=== PATIENT | female | born 1940 | race Caucasian/White ===

== ENCOUNTER 2024-06-04 10:57 | Emergency (ER) | payer MEDICARE, OTHER, SELFPAY ==
[2024-06-04] VITALS (18 sets, daily range): BP systolic 148–164; BP diastolic 72–87; PULSE 80–95; RESP 22; O2SAT 91–96; BMI 29.9
--- NOTE | 2024-06-04 11:29 | CRLHL7_ITS ---
For Patients: As a result of the Century Cures Act, medical imaging exams and procedure reports are released immediately into your electronic medical record. You may view this report before your referring provider. If you have questions, please contact your health care provider. INDICATION: Shortness of breath TECHNIQUE: Two view chest. FINDINGS: The lungs are clear. The heart, mediastinum and pulmonary vessels are of normal size. There is no evidence of pleural disease. IMPRESSION: Negative chest. Dictated by Gladys Peng MD @ 06/04/2024 12:17:56 PM (Electronically Signed)
--- NOTE | 2024-06-04 11:44 | ED_ITS ---
HPI - General Adult General Chief complaint: Shortness of Breath/Dyspnea Stated complaint: Fall three weeks ago--rib pain, short of breath Time Seen by Provider: 06/04/24 11:11 Source: patient Mode of arrival: ambulatory Limitations: no limitations History of Present Illness HPI narrative: 83-year-old female presenting today with chest pain and shortness of breath. Patient states that she has left-sided chest pain that radiates into her left back. She states that this all started about 3 weeks ago after she fell to the ground. She states that her legs gave out and she fell onto her left side. She felt fine she was able to get up and went about her day. A couple days later she left to go and a car trip to [place] where she stayed for a week. She states that it was during the beginning of that car trip that the pain started. It has been constant ever since. She was evaluated at an urgent care recently where she states that no imaging was done when she was diagnosed with costochondritis. She states that the pain is not getting any better and is causing her to feel short of breath. She denies coughing, fevers or chills. She denies central or substernal chest pain. She denies diaphoresis, dizziness or lightheadedness. she states that it is not painful to take a deep breath. Patient does state that she has a history of PE approximately 10 years ago. She takes a daily baby aspirin? when she remembers to?. Patient denies weakness or increased fatigue. Patient denies any cardiovascular history. States that she had a stress test done in the last year and it was negative. Related Data Home Medications ?Medication ?Instructions ?Recorded ?Confirmed aspirin 81 mg capsule 81 mg PO DAILY 06/04/24 06/04/24 prednisone 10 mg tablet mg PO 06/04/24 Allergies Allergy/AdvReac Type Severity Reaction Status Date / Time No Known Drug Allergies Allergy Verified 06/04/24 12:51 Review of Systems Status of ROS: Reports: 10 or more systems reviewed and unremarkable except as noted in History and below [facility] Social History Smoking Status: Never smoker Do you use any of these nicotine containing products: None Second hand tobacco smoke exposure: No How often do you have a drink containing alcohol: monthly or less How many standard drinks containing alcohol do you have on a typical day: 1 or 2 How often do you have six or more drinks on one occasion: Never AUDIT-C Alcohol total score: 1 Non-prescribed substance use: denies use service: No Exam Narrative: Exam Narrative: Well-nourished well-developed patient in no acute distress. Alert and oriented. Answers questions appropriately. Mood and affect are appropriate. Thoughts are goal oriented and rational. No tangential or magical thinking noted. Patient speaks in full sentences without needing to catch her breath. HEENT: Normocephalic atraumatic. Pupils are equally round reactive to light. Extraocular muscles are intact. Conjunctivae are moist without any icterus noted. Moist mucous membranes. Neck is soft. Cardiovascular: Heart is regular rate and rhythm S1 and S2 are present without any murmurs. Lungs: Clear to auscultation bilaterally no wheezes rhonchi or rales are appreciated. Patient takes deep breaths without any discomfort. I cannot rep roduce her pain with palpation of the chest wall. However, she can reproduce her pain with movement. Abdomen: Soft and nontender nondistended with normal bowel sounds. No guarding or rebound. No masses or organomegaly appreciated. Minimal epigastric discomfort. Extremities: Bilateral lower extremities are without edema. Skin: Well perfused without any obvious rashes. She has a lot of scattered bruising of the upper extremities. There is no bruising noticed over the chest wall. Back: Normal appearance no bruising noted. She has no tenderness to palpation over the cervical, thoracic or lumbar spine. She is able to go from a lying to a sitting position without significant discomfort. Const: Vital Signs, click to edit/add: Vital Signs - 24 hr 06/04/24 11:11 06/04/24 11:12 06/04/24 11:12 Pulse Rate 82 86 Pulse Rate [Pulse Oximeter] 87 Respiratory Rate 22 Blood Pressure 152/78 H Blood Pressure [Ri ght Upper Arm] 152/78 H Pulse Oximetry 95 93 92 Oxygen Delivery Me thod Room Air 06/04/24 11:15 06/04/24 11:30 06/04/24 11:34 Pulse Rate 87 88 89 Pulse Rate [Pulse Oximeter] Respiratory Rate Blood Pressure Blood Pressure [Ri ght Upper Arm] Pulse Oximetry 93 94 93 Oxygen Delivery Me thod 06/04/24 11:48 06/04/24 12:00 06/04/24 12:00 Pulse Rate 86 87 Pulse Rate [Pulse Oximeter] Respiratory Rate Blood Pressure Blood Pressure [Ri ght Upper Arm] Pulse Oximetry 95 92 95 Oxygen Delivery Me thod 06/04/24 12:05 06/04/24 12:06 06/04/24 12:30 Pulse Rate 85 84 86 Pulse Rate [Pulse Oximeter] Respiratory Rate Blood Pressure Blood Pressure [Ri ght Upper Arm] Pulse Oximetry 96 94 92 Oxygen Delivery Me thod 06/04/24 12:31 Pulse Rate 80 Pulse Rate [Pulse Oximeter] Respiratory Rate Blood Pressure 164/87 H Blood Pressure [Ri ght Upper Arm] Pulse Oximetry 92 Oxygen Delivery Me thod Course Course ED Course: EKG, read by me, shows sinus rhythm with sinus arrhythmia and a premature ventricular complex. I do not have a previous EKG to compare this to. His CBC shows a white cell count of 11.1, hemoglobin 10.7, platelet count 318. Lymphocytes are low at 8.7%, absolute lumbar lymphocytes were normal at 1 150. Potassium is low at 3.0. Chemistries are otherwise unremarkable. Normal lactate. Normal LFTs. CRP is 1.5. BNP 1040 Triple swab is negative. Troponin 0.02. Chest x-ray, read by me, does not show any acute pathology. D-dimer was elevated at 1.82. Chest CT, PE protocol, with not show any acute abnormalities. Vital Signs Vital signs: Initial Vital Signs Pulse Rate 82 06/04/24 11:11 Pulse Oximetry 95 06/04/24 11:11 Vital Signs Pulse Rate 82 06/04/24 11:11 Pulse Oximetry 95 06/04/24 11:11 Pulse Rate 80 06/04/24 12:31 Respiratory Rate 22 06/04/24 11:12 Blood Pressure 164/87 H 06/04/24 12:31 Pulse Oximetry 92 06/04/24 12:31 Oxygen Delivery Method Room Air 06/04/24 11:12 Medications Administered Medications: Discontinued Medications Generic Name Dose Route Start Last Admin Trade Name Freq PRN Reason Stop Dose Admin Potassium Chloride 40 meq 06/04/24 12:33 06/04/24 13:11 Potassium Chloride 10 Meq Capsule Er PO 06/04/24 12:34 40 meq ONCE ONE Administration Medical Decision Making MDM Narrative Medical decision making narrative: 83-year-old female with chest wall discomfort and subsequent shortness of breath. No abnormalities noted in today's examination. We discussed that this could be musculoskeletal pain. Given that she has had a stress test in the last year it is unlikely that this is cardiovascular in nature. There was no evidence of lung pathology noted. Patient tells me that she does not have a primary care provider that she follows up with regularly, has not been impressed with doctors in the past. We discussed that she needs to establish care with a provider and follow-up accordingly. I recommend she return to the ER for worsening symptoms and having a low threshold to do so. Patient was in agreement and had no other questions. Lab Data Labs: Lab Results 06/04/24 06/04/24 Range/Units 11:38 11:40 WBC 11.15 H (4.50-11.00) K/uL RBC 3.17 L (4.00-5.20) m/uL Hgb 10.7 L (12.0-16.0) gm/dL Hct 33.4 (33.0-51.0) % MCV 105 H (80-100) fL MCH 34 (26-34) pg MCHC 32 (32-36) gm/dL RDW Coeff of Padmini 19.0 H (11.5-15.5) % Plt Count 318 (140-440) K/uL Neut % (Auto) 81.5 H (42.0-72.0) % Lymph % (Auto) 8.7 L (20-44) % [place] % (Auto) 6.7 (0.0-11.0) % Eos % (Auto) 2.1 (0.0-7.0) % Baso % (Auto) 0.6 (0.0-3.0) % Neut # (Auto) 9.10 H (1.7-7.0) K/uL Lymph # (Auto) 1.00 (0.90-2.90) K/uL [place] # (Auto) 0.70 (0.00-0.90) K/UL Eos # (Auto) 0.20 (0.00-0.50) K/uL Baso # (Auto) 0.10 (0.00-0.30) K/uL Abs Immat Gran (auto) 0.00 (0.00-0.30) K/uL Imm/Tot Granulo (auto) 0.4 % D-Dimer Quant (PE/DVT) 1.82 H (0.00-0.50) ug/ml Sodium 136 (135-149) mmol/L Potassium 3.0 L (3.6-5.1) mmol/L Chloride 98 (96-114) mmol/L Carbon Dioxide 32 (20-32) mmol/L Anion Gap 6 L (7-15) mEq/L BUN 8 (7-30) mg/dL Creatinine 0.7 (0.5-1.5) mg/dL Estimated Creat Clear 30.08 Estimated GFR 85 ml/min Glucose 109 (60-115) mg/dL Lactate 1.4 (0.5-1.9) mmol/L Calcium 8.9 (8.4-10.6) mg/dL Total Bilirubin 1.0 (0.1-1.5) mg/dL Direct Bilirubin 0.1 (0.0-0.5) mg/dL AST 20 (12-35) U/L ALT 15 (4-35) U/L Alkaline Phosphatase 87 (40-150) U/L Troponin I 0.02 (0.01-0.04) ng/mL C-Reactive Protein 1.5 H (0.5-1.0) mg/dL NT-Pro-B Natriuret Pep 1040 pg/mL Total Protein 6.5 (6.0-8.3) g/dL Albumin 3.9 (3.3-5.0) g/dL Lipase 41 (23-300) U/L SARS-CoV-2 (PCR) Negative SARS-CoV-2 (Negative) Influenza Type A (PCR) Negative PCR FLU A (Negative) Influenza Type B (PCR) Negative PCR FLU B (Negative) Imaging Data Chest x-ray: Attestation: I have reviewed the pertinent imaging results. Radiologist's impression: TECHNIQUE: Two view chest. FINDINGS: The lungs are clear. The heart, mediastinum and pulmonary vessels are of normal size. There is no evidence of pleural disease. IMPRESSION: Negative chest. CT scan - chest: Attestation: I have reviewed the pertinent imaging results. Radiologist's impression: Shortness of breath fall 3 weeks ago left rib pain TECHNIQUE: CT chest with 95 mL Isovue 370 COMPARISON: None. FINDINGS: Soft tissue nodule left paratracheal region on the coronal images could be related to exophytic left lower thyroid nodule. , 12/07 Lungs and pleura: No suspicious nodules or infiltrates. No pleural effusions, pleural thickening, or pneumothorax. Heart and vasculature: Heart size is normal. Thoracic aorta and pulmonary artery are normal in caliber. No pulmonary emboli. Lymph nodes/mediastinum: Chest wall: No masses. Upper abdomen: No significant findings. Bones: Minimal compression deformity of T12 age indeterminate no definite acute fractures are seen. No rib fractures seen. IMPRESSION: 1. No acute pulmonary emboli. No acute pulmonary findings. No acute rib fracture seen. 2. Possible Exophytic left lower pole thyroid nodule would recommend ultrasound. ECG Data Attestation: I personally reviewed and interpreted this ECG as follows: Discharge Plan Discharge Clinical Impression: Shortness of breath, Atypical chest pain, Thyroid nodule Patient Disposition: Home, Self-Care Condition: Stable Additional Instructions: Recommend taking Tylenol as needed/as directed for discomfort. Okay to apply heat to the sore areas - do not apply heat directly to the skin and do not use heat for more than 20 minutes at a time. Recommend that you establish care with a primary care provider so you can have more consistent follow-up. We can provided with phone numbers to our clinic physicians here in [place] if needed. If you develop worsening pain, cough, weakness, fever or vomiting then you should return to the emergency room. Lastly, your CT scan today did show a small nodule on your thyroid. This is nothing to be concerned about however you should have an ultrasound of your thyroid done to further evaluate what this nodule is. This can be ordered by a primary care provider. Recommend you get this done in the next couple of weeks. Prescriptions: No Action prednisone 10 mg tablet PO aspirin 81 mg capsule 81 mg PO DAILY Follow Up/Referrals: Provider,Not a Local [Primary Care Provider] - Stand Alone Forms: FAST FELT Info Instructions
[2024-06-04 11:50] LABS: Lactate* 1.4 mmol/L (0.5-1.9)
[2024-06-04 11:51] LABS: Basophils Percent Auto 0.6 % (0.0-3.0); Eosinophils Percent Auto 2.1 % (0.0-7.0); Hematocrit 33.4 % (33.0-51.0); Hemoglobin* 10.7 gm/dL (12.0-16.0); Immature Granulocytes Pct Auto 0.4 %; Lymphocytes Percent Auto 8.7 % (20-44); Mean Corpuscular HGB Conc 32 gm/dL (32-36); Mean Corpuscular Hemoglobin 34 pg (26-34); Mean Corpuscular Volume 105 fL (80-100); Monocytes Percent Auto 6.7 % (0.0-11.0); Neutrophils Percent Auto 81.5 % (42.0-72.0); Platelet Count* 318 K/uL (140-440); Red Blood Count 3.17 m/uL (4.00-5.20); White Blood Count* 11.15 K/uL (4.50-11.00)
[2024-06-04 12:05] LABS: Slide Review Reflex No
[2024-06-04 12:08] LABS: Albumin* 3.9 g/dL (3.3-5.0); Chloride* 98 mmol/L (96-114); Sodium* 136 mmol/L (135-149)
[2024-06-04 12:11] LABS: Creatinine* 0.7 mg/dL (0.5-1.5); D Dimer Quantitative* 1.82 ug/ml (0.00-0.50); Est. Creatinine Clearance* 30.08; Estimated Glomerular Filt Rate 85 ml/min
[2024-06-04 12:12] LABS: Alanine Aminotransferase* 15 U/L (4-35); Alkaline Phosphatase* 87 U/L (40-150); Anion Gap 6 mEq/L (7-15); Aspartate Amino Transferase* 20 U/L (12-35); Bilirubin Direct* 0.1 mg/dL (0.0-0.5); Blood Urea Nitrogen* 8 mg/dL (7-30); Calcium* 8.9 mg/dL (8.4-10.6); Carbon Dioxide* 32 mmol/L (20-32); Glucose* 109 mg/dL (60-115); Lipase* 41 U/L (23-300); Total Protein* 6.5 g/dL (6.0-8.3)
[2024-06-04 12:15] LABS: C Reactive Protein* 1.5 mg/dL (0.5-1.0)
--- NOTE | 2024-06-04 12:16 | CRLHL7_ITS ---
For Patients: As a result of the Century Cures Act, medical imaging exams and procedure reports are released immediately into your electronic medical record. You may view this report before your referring provider. If you have questions, please contact your health care provider. INDICATION: Shortness of breath fall 3 weeks ago left rib pain TECHNIQUE: CT chest with 95 mL Isovue 370 COMPARISON: None. FINDINGS: Soft tissue nodule left paratracheal region on the coronal images could be related to exophytic left lower thyroid nodule. , 12/07 Lungs and pleura: No suspicious nodules or infiltrates. No pleural effusions, pleural thickening, or pneumothorax. Heart and vasculature: Heart size is normal. Thoracic aorta and pulmonary artery are normal in caliber. No pulmonary emboli. Lymph nodes/mediastinum: Chest wall: No masses. Upper abdomen: No significant findings. Bones: Minimal compression deformity of T12 age indeterminate no definite acute fractures are seen. No rib fractures seen. IMPRESSION: 1. No acute pulmonary emboli. No acute pulmonary findings. No acute rib fracture seen. 2. Possible Exophytic left lower pole thyroid nodule would recommend ultrasound. Please note that all CT scans at this facility use dose modulation, iterative reconstruction, and/or weight-based dosing when appropriate to reduce radiation dose to as low as reasonably achievable. Dictated by Gladys Peng MD @ 06/04/2024 1:44:21 PM (Electronically Signed)
[2024-06-04 12:23] LABS: Troponin I* 0.02 ng/mL (0.01-0.04)
[2024-06-04 12:30] LABS: NT Pro B Type NatriureticPept* 1040 pg/mL
[2024-06-04 12:31] LABS: PCR FLU A Negative PCR FLU A (Negative); PCR FLU B Negative PCR FLU B (Negative); SARS PCR* Negative SARS-CoV-2 (Negative)
[2024-06-04] MEDS: POTASSIUM CHLORIDE 10 MEQ CAPSULE ER 40 MEQ PO (13:11)
[2024-06-04 14:25] LABS: Appearance Urine Clear (Clear); Bilirubin Urine Negative (Negative); Blood Urine Trace-lysed (Negative); Color Urine Yellow (Yellow); Glucose Urine Negative (Negative); Ketones Urine 1+ (Negative); Leukocyte Esterase Urine Negative (Negative); Nitrite Urine Negative (Negative); Protein Urine Negative (Negative); Specific Gravity Urine 1.015 (1.000-1.030); Urobilinogen Urine 0.2 (0.2-1.0)
[2024-06-04 14:34] LABS: RBC Urine 0-2 (0-2); WBC Urine 0-2 (0-5)
== END 2024-06-04 14:17 | disposition home or self-care (01) ==
PROVIDERS: Emergency Provider Family Medicine
DX: R06.02 Shortness of breath (principal); R07.89 Other chest pain; E04.1 Nontoxic single thyroid nodule
CPT/HCPCS: 36415; 71046; 71275; 80048; 80076; 81001; 83605; 83690; 83880; 84484; 85025; 85379; 86140; 87631; 93005; 94761; 99284; 99285; A9270; Q9967

== ENCOUNTER 2024-07-19 16:45 | Emergency (ER) | payer MEDICARE, OTHER, SELFPAY ==
[2024-07-19] VITALS (13 sets, daily range): BP systolic 113–122; BP diastolic 51–72; PULSE 74–111; RESP 18; TEMP 36.9; O2SAT 88–96; BMI 25.7
--- NOTE | 2024-07-19 16:54 | CRLHL7_ITS ---
For Patients: As a result of the Century Cures Act, medical imaging exams and procedure reports are released immediately into your electronic medical record. You may view this report before your referring provider. If you have questions, please contact your health care provider. DATE: 07/19/2024 CLINICAL HISTORY: Patient with focal neurological deficits. TECHNIQUE: Standard helical CT image acquisition through the intracranial circulation following intravenous administration of contrast material with bolus tracking. 2D and 3D MIP images for post-processing were performed and interpreted on an independent workstation and 3D images were permanently archived. COMPARISON: CT same day. FINDINGS: There is no cerebral aneurysm or proximal intracranial large vessel occlusion. 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 IMPRESSION: 1. No cerebral aneurysm or proximal intracranial large vessel occlusion. 2. 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 Please note that all CT scans at this facility use dose modulation, iterative reconstruction, and/or weight-based dosing when appropriate to reduce radiation dose to as low as reasonably achievable. Dictated by Danya Ayala MD @ 07/20/2024 9:12:03 AM (Electronically Signed)
--- NOTE | 2024-07-19 16:54 | CRLHL7_ITS ---
For Patients: As a result of the Century Cures Act, medical imaging exams and procedure reports are released immediately into your electronic medical record. You may view this report before your referring provider. If you have questions, please contact your health care provider. INDICATION: Visual disturbance. TECHNIQUE: Multiplanar multisequence noncontrast MR images of the brain. COMPARISON: CT brain 07/19/2024. FINDINGS: Punctate foci of diffusion hyperintensity and ADC isointensity in the anterior and medial right parietal lobe, compatible with subacute to chronic infarctions. No diffusion restriction to suggest acute infarction. Mild diffuse cerebral volume loss. No mass effect or midline shift. Scattered FLAIR hyperintensities in the supratentorial white matter, typical for mild chronic microvascular ischemic changes. 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 No recent intracranial hemorrhage or pathologic extra-axial fluid collection. Punctate susceptibility superior left occipital lobe, compatible with a microhemorrhage. Thinning of the ocular lenses. Paranasal sinuses are well aerated. Minimal left mastoid fluid. IMPRESSION: 1. Very small subacute to chronic infarctions within the right parietal lobe. 2. 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 3. Mild chronic microvascular ischemic changes and diffuse cerebral volume loss. Dictated by Alexander Nguyen MD @ 07/19/2024 6:04:36 PM (Electronically Signed)
--- NOTE | 2024-07-19 16:54 | CRLHL7_ITS ---
For Patients: As a result of the Century Cures Act, medical imaging exams and procedure reports are released immediately into your electronic medical record. You may view this report before your referring provider. If you have questions, please contact your health care provider. Indication Weakness. Vision changes. TECHNIQUE: Noncontrast CT images of the brain. COMPARISON: None. FINDINGS: Mild diffuse cerebral volume loss. No mass effect or midline shift. Giron-white differentiation is maintained. No acute intracranial hemorrhage or pathologic extra-axial fluid collection. Suggested mild chronic microvascular ischemic changes. Intracranial atherosclerotic calcifications. Thinning of the ocular lenses. Calvarium is intact. The visualized paranasal sinuses and mastoid air cells are clear. IMPRESSION: No acute intracranial hemorrhage or mass effect. Please note that all CT scans at this facility use dose modulation, iterative reconstruction, and/or weight-based dosing when appropriate to reduce radiation dose to as low as reasonably achievable. Dictated by Alexander Nguyen MD @ 07/19/2024 5:50:12 PM (Electronically Signed)
--- NOTE | 2024-07-19 16:54 | CRLHL7_ITS ---
For Patients: As a result of the Century Cures Act, medical imaging exams and procedure reports are released immediately into your electronic medical record. You may view this report before your referring provider. If you have questions, please contact your health care provider. DATE: 07/19/2024 CLINICAL HISTORY: Patient with carotid stenosis. TECHNIQUE: Standard helical CT image acquisition of the neck up to the skull base after bolus intravenous contrast enhancement. 2D and 3D MIP images for post-processing were performed and interpreted on an independent workstation and 3D images were permanently archived. COMPARISON: CT same day. FINDINGS: The origins of the great vessels from the aortic arch are patent. 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 The origin of the left vertebral artery demonstrates moderate narrowing. The common carotid arteries are patent. There is a critical (99%) stenosis at the origin of the right internal carotid artery by NASCET criteria. This is caused by non-calcified plaque with a hairline residual lumen. There is a critical (99%) stenosis at the origin of the left internal carotid artery by NASCET criteria. This is caused by non-calcified plaque with a hairline residual lumen. The rest of the cervical segments of the internal carotid arteries are patent up to the skull base. The left vertebral artery is dominant. The cervical segments of the vertebral arteries are patent up to the skull base. The visualized lung apices are unremarkable. The thyroid gland is unremarkable. The soft tissues of the neck are unremarkable. There are degenerative changes in the cervical spine. IMPRESSION: 1. Critical (99%) stenosis at the origin of the right internal carotid artery by NASCET criteria. This is caused by non-calcified plaque with a hairline residual lumen. 2. Critical (99%) stenosis at the origin of the left internal carotid artery by NASCET criteria. This is caused by non-calcified plaque with a hairline residual lumen. 3. 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 Moderate narrowing at the origin of the dominant left vertebral artery. Please note that all CT scans at this facility use dose modulation, iterative reconstruction, and/or weight-based dosing when appropriate to reduce radiation dose to as low as reasonably achievable. Dictated by Danya Ayala MD @ 07/20/2024 9:08:56 AM (Electronically Signed)
--- NOTE | 2024-07-19 17:05 | CRLHL7_ITS ---
For Patients: As a result of the Century Cures Act, medical imaging exams and procedure reports are released immediately into your electronic medical record. You may view this report before your referring provider. If you have questions, please contact your health care provider. INDICATION: Chest pain. Back pain. TECHNIQUE: Chest 2 views. COMPARISON: 06/04/2024. FINDINGS: No pneumothorax or pleural effusion. Linear bibasilar scarring or atelectasis and small calcified nodule at the left lung base, as before. Lungs are otherwise clear. Aortic atherosclerosis. Cardiac and mediastinal contours are within normal limits. Upper abdomen as imaged is unremarkable. Bone demineralization and degenerative changes. No radiographic evidence of acute fracture. IMPRESSION: No evidence of acute cardiopulmonary disease. Dictated by Dennis Marshall MD @ 07/19/2024 6:23:51 PM (Electronically Signed)
[2024-07-19 17:18] LABS: Basophils Absolute Auto 0.08 K/uL (0.00-0.30); Basophils Percent Auto 1.2 % (0.0-3.0); Eosinophils Absolute Auto 0.32 K/uL (0.00-0.50); Eosinophils Percent Auto 4.8 % (0.0-7.0); Hematocrit 34.1 % (33.0-51.0); Hemoglobin* 10.9 gm/dL (12.0-16.0); Immature Granulocytes Abs Auto 0.03 K/uL (0.00-0.30); Immature Granulocytes Pct Auto 0.5 %; Lymphocytes Absolute Auto 1.65 K/uL (0.90-2.90); Lymphocytes Percent Auto 24.8 % (20-44); Mean Corpuscular HGB Conc 32 gm/dL (32-36); Mean Corpuscular Hemoglobin 33 pg (26-34); Mean Corpuscular Volume 104 fL (80-100); Monocytes Percent Auto 9.2 % (0.0-11.0); Neutrophils Absolute Auto 3.95 K/uL (1.7-7.0); Neutrophils Percent Auto 59.5 % (42.0-72.0); Platelet Count* 421 K/uL (140-440); RDW Coefficient of Variation % 19.7 % (11.5-15.5); Red Blood Count 3.27 m/uL (4.00-5.20); White Blood Count* 6.64 K/uL (4.50-11.00)
[2024-07-19 17:21] LABS: Slide Review Reflex No
[2024-07-19 17:35] LABS: Chloride* 105 mmol/L (96-114); Sodium* 139 mmol/L (135-149)
[2024-07-19 17:36] LABS: Potassium* 3.7 mmol/L (3.6-5.1)
[2024-07-19 17:38] LABS: Creatinine* 0.7 mg/dL (0.5-1.5); Est. Creatinine Clearance* 34.64; Estimated Glomerular Filt Rate 85 ml/min
[2024-07-19 17:39] LABS: Anion Gap 8 mEq/L (7-15); Blood Urea Nitrogen* 13 mg/dL (7-30); Calcium* 9.1 mg/dL (8.4-10.6); Carbon Dioxide* 26 mmol/L (20-32); Glucose* 142 mg/dL (60-115)
--- NOTE | 2024-07-19 17:49 | ED_ITS ---
HPI - General Adult General Date Seen: 07/19/24 Chief complaint: Headache/Migraine Stated complaint: possible stroke Time Seen by Provider: 07/19/24 16:53 Source: patient Mode of arrival: ambulatory Limitations: no limitations History of Present Illness HPI narrative: Patient is an 83-year-old female presenting to emergency department with her friend. Patient states over the past few months she has been having issues with intermittent torquing vision were feel like she is wearing dark sunglasses for him symptoms usually last 30-45 minutes. She has seen primary care and an nurse staff industrial with no diagnosis found yet. She states she was feeling fatigue all morning was having some pain between her shoulder blades when all this was occurring. She took a nitro and after an hour and a half symptoms resolved. She had a heart stent placed 2 weeks ago at [facility]. At that time she was having the same pain in her back. She is also feeling a bit fatigued at that time but does appear to be getting better now. Her friend, who was in the room with her, states that when she spoke to her on the phone this morning the patient seemed very tired and out of it and now she would describe her as 85%. States she does feel short of breath with asthma chronic issue and has improved since her stent placement. Denies fevers, chills, abdominal pain, dizziness, headache, diarrhea, constipation. Related Data Home Medications ?Medication ?Instructions ?Recorded ?Confirmed aspirin 81 mg capsule 81 mg PO DAILY 06/04/24 07/19/24 prednisone 10 mg tablet mg PO 06/04/24 apixaban 5 mg tablet (Eliquis) PO 07/19/24 clopidogrel 75 mg tablet 75 mg PO DAILY 07/19/24 07/19/24 ezetimibe 10 mg tablet 10 mg PO DAILY 07/19/24 07/19/24 nitroglycerin 0.4 mg sublingual sublingual 07/19/24 tablet rosuvastatin 5 mg tablet 5 mg PO DAILY 07/19/24 07/19/24 Allergies Allergy/AdvReac Type Severity Reaction Status Date / Time No Known Drug Allergies Allergy Verified 07/19/24 17:32 Review of Systems Status of ROS: Reports: 10 or more systems reviewed and unremarkable except as noted in History and below PFSH PFSH Social History Smoking Status: Never smoker Do you use any of these nicotine containing products: None Second hand tobacco smoke exposure: No How often do you have a drink containing alcohol: monthly or less How many standard drinks containing alcohol do you have on a typical day: 1 or 2 How often do you have six or more drinks on one occasion: Never AUDIT-C Alcohol total score: 1 Non-prescribed substance use: denies use service: No Exam Narrative: Exam Narrative: Const: Well-nourished, Well-developed, in mild distress Eyes: PERRL, no conjunctival injection, and symmetrical lids HENT: Atraumatic external nose and ears. Moist mucous membranes. Neck: Symmetric, trachea midline, No thyromegaly. CVS: RRR, No murmurs or gallops. Peripheral pulses 2+ and equal in all extremities RESP: Unlabored respiratory effort. Clear to auscultation bilaterally. GI: Nontender/Nondistended, No rebound or guarding. MSK:Extremities w/o deformity, Normal Active ROM Skin: Warm, Dry. No rashes or lesions. Neuro: Normal Muscle tone, No focal neurological deficits. Psych: Awake, Alert, & Oriented x3. Appropriate mood and affect. Const: Vital Signs, click to edit/add: Vital Signs - 24 hr 07/19/24 16:50 07/19/24 17:05 07/19/24 17:06 Temperature 98.4 F Pulse Rate 89 83 Pulse Rate [Left P ulse Oximeter] 111 H Respiratory Rate Blood Pressure 122/72 Blood Pressure [Le ft Upper Arm] 122/71 Pulse Oximetry 94 88 95 [facility] 07/19/24 17:13 07/19/24 18:00 07/19/24 18:02 Temperature Pulse Rate 87 91 Pulse Rate [Left P ulse Oximeter] Respiratory Rate 18 Blood Pressure 120/51 L Blood Pressure [Le ft Upper Arm] Pulse Oximetry 95 96 Oxygen Delivery Ak thod 07/19/24 18:03 07/19/24 18:15 07/19/24 18:30 Temperature Pulse Rate 74 76 79 Pulse Rate [Left P ulse Oximeter] Respiratory Rate Blood Pressure Blood Pressure [Le ft Upper Arm] Pulse Oximetry 96 96 94 Oxygen Delivery Ak thod 07/19/24 18:33 07/19/24 18:34 07/19/24 18:45 Temperature Pulse Rate 80 87 81 Pulse Rate [Left P ulse Oximeter] Respiratory Rate Blood Pressure 120/62 Blood Pressure [Le ft Upper Arm] Pulse Oximetry 94 95 89 Oxygen Delivery Me thod 07/19/24 19:06 Temperature Pulse Rate Pulse Rate [Left P ulse Oximeter] Respiratory Rate Blood Pressure 113/64 Blood Pressure [Le ft Upper Arm] Pulse Oximetry Oxygen Delivery Me thod Course Vital Signs Vital signs: Initial Vital Signs Temperature 98.4 F 07/19/24 16:50 Temperature Source Temporal Artery Scan 07/19/24 16:50 Pulse Rate 111 H 07/19/24 16:50 Pulse Rhythm Regular 07/19/24 16:50 Blood Pressure 122/71 07/19/24 16:50 Blood Pressure Mean 88 07/19/24 16:50 Blood Pressure Position Supine 07/19/24 16:50 Pulse Oximetry 94 07/19/24 16:50 Oxygen Delivery Method Room Air 07/19/24 16:50 Vital Signs Temperature 98.4 F 07/19/24 16:50 Pulse Rate 111 H 07/19/24 16:50 Blood Pressure 122/71 07/19/24 16:50 Pulse Oximetry 94 07/19/24 16:50 Oxygen Delivery Method Room Air 07/19/24 16:50 Temperature 98.4 F 07/19/24 16:50 Pulse Rate 81 07/19/24 18:45 Respiratory Rate 18 07/19/24 17:13 Blood Pressure 113/64 07/19/24 19:06 Pulse Oximetry 89 07/19/24 18:45 Oxygen Delivery Method Room Air 07/19/24 16:50 Medical Decision Making MDM Narrative Medical decision making narrative: Patient is an 83-year-old female who presented to emergency department concerned about stroke symptoms. The symptoms have since fully resolved. Code stroke is not necessary. Based on her description also this does not sound clearly like a stroke. Typically with a stroke you would have complete loss of vision and not darker vision. 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 At this time will do CT scan of her head along the CTA head and neck. MRI is available right now so we will do an MRI also. She was also having some chest pain that resolved 90 been it after taking nitro. She did have a cardiac stent placed 2 weeks ago but is on aspirin and Plavix. Concerned how long it took for symptoms to resolve with nitro does not seem likely to be a restenoses by will check a chest x-ray, troponin, EKG. Also do CBC, BMP, BNP. EKG reviewed by myself shows no concerning abnormalities. Troponin within normal limits. Will repeat troponin in 2 hours. CBC, BMP, viral swabs showed no concerning findings. BNP is elevated at 1300 but this is roughly were she was previously and she is not showing any other clear signs of CHF exacerbation. Imaging reviewed by myself and the radiologist shows quite a bit of stenosis to her bilateral carotids and vertebral arteries. MRI shows some chronic are strokes. Considering all this I did speak to Neurology and was recommended to have a follow-up with vascular and Neurology outpatient. Does not recommend any further medication changes as she was already on dual anti-platelet therapy. Repeat troponin was negative. She is asymptomatic at this time and will follow- up outpatient. On my review vital signs are stable throughout time in in the emergency department. Oximetry stayed in the mid to high 90s. satellite project site monitor showed no concerning arrhythmias. She is agreeable to this plan Lab Data Labs: Lab Results 07/19/24 07/19/24 07/19/24 Range/Units 17:00 17:08 18:59 WBC 6.64 (4.50-11.00) K/uL RBC 3.27 L (4.00-5.20) m/uL Hgb 10.9 L (12.0-16.0) gm/dL Hct 34.1 (33.0-51.0) % MCV 104 H (80-100) fL MCH 33 (26-34) pg MCHC 32 (32-36) gm/dL RDW Coeff of Padmini 19.7 H (11.5-15.5) % Plt Count 421 (140-440) K/uL Neut % (Auto) 59.5 (42.0-72.0) % Lymph % (Auto) 24.8 (20-44) % [place] % (Auto) 9.2 (0.0-11.0) % Eos % (Auto) 4.8 (0.0-7.0) % Baso % (Auto) 1.2 (0.0-3.0) % Neut # (Auto) 3.95 (1.7-7.0) K/uL Lymph # (Auto) 1.65 (0.90-2.90) K/uL [place] # (Auto) 0.60 (0.00-0.90) K/UL Eos # (Auto) 0.32 (0.00-0.50) K/uL Baso # (Auto) 0.08 (0.00-0.30) K/uL Abs Immat Gran (auto) 0.03 (0.00-0.30) K/uL Imm/Tot Granulo (auto) 0.5 % Sodium 139 (135-149) mmol/L Potassium 3.7 (3.6-5.1) mmol/L Chloride 105 (96-114) mmol/L Carbon Dioxide 26 (20-32) mmol/L Anion Gap 8 (7-15) mEq/L BUN 13 (7-30) mg/dL Creatinine 0.7 (0.5-1.5) mg/dL Estimated Creat Clear 34.64 Estimated GFR 85 ml/min Glucose 142 H (60-115) mg/dL Calcium 9.1 (8.4-10.6) mg/dL Troponin I < 0.01 L (0.01-0.04) ng/mL NT-Pro-B Natriuret Pep 1310 pg/mL SARS-CoV-2 (PCR) Negative SARS-CoV-2 (Negative) Influenza Type A (PCR) Negative PCR FLU A (Negative) Influenza Type B (PCR) Negative PCR FLU B (Negative) POC Troponin I 0.00 L 0.01 (0.01-0.04) ng/ml Imaging Data MR Brain: Attestation: I have reviewed the pertinent imaging results. Radiologist's impression: 1. Very small subacute to chronic infarctions within the right parietal lobe. 2. 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 3. Mild chronic microvascular ischemic changes and diffuse cerebral volume loss. Dictated by Alexander Nguyen MD @ 07/19/2024 6:04:[address] scan - head: Attestation: I have reviewed the pertinent imaging results. Radiologist's impression: No acute intracranial hemorrhage or mass effect. Please note that all CT scans at this facility use dose modulation, iterative reconstruction, and/or weight-based dosing when appropriate to reduce radiation dose to as low as reasonably achievable. Dictated by Alexander Nguyen MD @ 07/19/2024 5:50:12 PM CTA head and neck: Attestation: I have reviewed the pertinent imaging results. Radiologist's impression: Preliminary Report: Occluded right vertebral artery distal V4 segment. Otherwise, no proximal large vessel occlusion of the intracranial arteries. Critical, near occlusive stenoses of the right and left cervical internal carotid artery origins with abrupt reconstitution. Severe left vertebral artery origin stenosis. Occluded right vertebral artery origin with reconstitution of the vertebral artery V2 and V3 segments. Read by:?Alexander Nguyen MD @07/19/2024 5:57:43 PM Chest x-ray: Attestation: I have reviewed the pertinent imaging results. Radiologist's impression: No evidence of acute cardiopulmonary disease. Dictated by Dennis Marshall MD @ 07/19/2024 6:23:51 PM ECG Data Attestation: I personally reviewed and interpreted this ECG as follows: Prior ECG tracings: available for review Interpretation: Normal sinus rhythm with a rate of 92 beats per minute, PVCs, normal intervals, normal axis, no ST or T-wave abnormalities. Appears similar to previous EKG on file. Discharge Plan Discharge Clinical Impression: Transient vision disturbance Patient Disposition: Home, Self-Care Condition: Stable Instructions: Blurred Vision (ED) Additional Instructions: Continue take your Plavix an aspirin. I recommend following up with Neurology and vascular for your chronic strokes and severe carotid stenosis. For neurology can follow up with the [facility] neurology clinic at [phone]. I recommend speaking to your primary care provider about a referral for vascular surgery. Return to emergency department for new or worsening symptoms. Prescriptions: No Action prednisone 10 mg tablet PO aspirin 81 mg capsule 81 mg PO DAILY clopidogrel 75 mg tablet 75 mg PO DAILY nitroglycerin 0.4 mg tablet, sublingual sublingual ezetimibe 10 mg tablet 10 mg PO DAILY rosuvastatin 5 mg tablet 5 mg PO DAILY Eliquis 5 mg tablet PO Follow Up/Referrals: Provider,Not a Local [Primary Care Provider] - Stand Alone Forms: [employer] Info Instructions
[2024-07-19 17:54] LABS: NT Pro B Type NatriureticPept* 1310 pg/mL; Troponin I* < 0.01 ng/mL (0.01-0.04)
[2024-07-19 17:56] LABS: PCR FLU A Negative PCR FLU A (Negative); PCR FLU B Negative PCR FLU B (Negative); SARS PCR* Negative SARS-CoV-2 (Negative)
[2024-07-19 19:24] LABS: Troponin, Point-of-Care* 0.01 ng/ml (0.01-0.04)
== END 2024-07-19 19:44 | disposition home or self-care (01) ==
PROVIDERS: Emergency Provider Student in an Organized Health Care Education/Training Program
DX: H53.123 Transient visual loss, bilateral (principal)
CPT/HCPCS: 36415; 70450; 70496; 70498; 70551; 71046; 80048; 83880; 84484; 85025; 87631; 93005; 99284; 99285; Q9967

== ENCOUNTER 2025-01-29 15:31 | Emergency (ER) | payer MEDICARE, OTHER, SELFPAY ==
--- OUTSIDE RECORDS SUMMARY | 2024-12-18 13:54 | XMS_ITS | Encounter Summary ---
Author Organization [facility] Address [address] [place] [address] Care Team Providers Care Inspector Watch Assembly Name Role Phone Elsewhere, Pcp Primary Care Provider Unavailabl e Reason for Referral * Outpatient (Routine) - Canceled Specialty Diagnoses / Procedures Referred By Aj michaels Referred To Contact Diagnoses Percutaneous Transarterial Coronary Angioplasty Status Post Procedures Cardiac Rehab Program Fady Denney M.D. [address] [place] [address] Phone: tel: fax: [facility] Referral ID Status Reason Start Date Expiration Date V isits Requested Visits Authorized [id number] Canceled 11/01/2024 02/01/2026 45 45 Reason for Visit * Outpatient (Routine) - Canceled Specialty Diagnoses / Procedures Referred By Aj michaels Referred To Contact Diagnoses Percutaneous Transarterial Coronary Angioplasty Status Post Procedures Cardiac Rehab Program Fady Denney M.D. [address] [place] [address] Phone: tel: fax: [facility] Region Referral ID Status Reason Start Date Expiration Date V isits Requested Visits Authorized [id number] Canceled 11/01/2024 02/01/2026 45 45 Encounter Details Date Type Department Care Team (Latest Contact Info) Description 12/18/2024 1:54 PM CDT - 12/18/2024 11:59 PM CDT Hospital Encounter Department of Cardiac Rehabilitation in [place], [place] [address] [place] [phone] Fady Denney M.D. 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 clopidogreL (Plavix) 75 mg tablet Take 75 mg by mouth daily. co-enzyme Q-10 (Co Q-10) 100 mg capsule Take 100 mg by mouth daily. ezetimibe (Zetia) 10 mg tablet Take 10 mg by mouth daily. furosemide (Lasix) 40 mg tablet Take 40 mg by mouth daily. rosuvastatin (Crestor) 5 mg tablet Take 5 mg by mouth daily. spironolactone (Aldactone) 25 mg tablet Take 12.5 mg by mouth daily. documented as of this encounter Plan of Treatment Upcoming Encounters Date Type Department Care Team (Latest Contact Info) Description 02/20/2025 5:00 PM CDT Appointment Department of Radiology, [facility], in [place], [place] [address] [place] [phone] Winter Wasserman P.A.-C., P.A., M.S. [address] [place] [phone] Discharge Disposition: Home or Self Care 02/21/2025 10:15 AM CDT Comprehensive Visit Department of Physical Medicine and Rehabilitation in [place], [place] [address] [place] [phone] Winter Wasserman P.A.-Natasha., P.A., M.S. [address] [place] [phone] Armida Rangel P.T. [address] [place] [phone] Scheduled Orders Name Type Priority Associated Diagnoses Orde r Schedule Cardiac Rehab Program Card Rehab Routine Percutaneous Transarterial Coronary Angioplasty Status Post Once for 1 Occurrences starting 12/18/2024 until 12/18/2024 documented as of this encounter Visit Diagnoses Diagnosis Percutaneous Transarterial Coronary Angioplasty Status Post documented in this encounter Additional Health Concerns Assessment Noted Time PHQ-9 Depression Total Score: 8 11/09/19 25 1:53 PM CDT documented as of this encounter Care Teams Inspector Watch Assembly Relationship Specialty Start Date End Date Elsewhere, Pcp PCP - General Family Medicine 12/21/20 documented as of this encounter
--- OUTSIDE RECORDS SUMMARY | 2024-12-28 11:00 | XMS_ITS | Encounter Summary ---
Author Organization [facility] Address [address], [place] [address] Care Team Providers Care Certified Legal Investigator Name Role Phone Clinician, Not Found MD Primary Care Provider Un available Reason for Visit * Procedure/Equipment (Routine) - Pending Review Specialty Diagnoses / Procedures Referred By Contac t Referred To Contact Diagnoses Bilateral carotid artery stenosis Procedures US/VL Carotid Bilat Darin Madrid MD [address] [place] [address] Phone: tel: fax: Referral ID Status Reason Start Date Expiration Date V isits Requested Visits Authorized [id number] Pending Review 12/14/2024 03/15/2026 1 1 Encounter Details Date Type Department Care Team (Late Contact Info) Description 12/28/2024 11:00 AM CDT Ancillary Procedure [facility] [address] V[facility] Lab [address] [place] [phone] Darin Madrid MD [address] [place] [address] Bilateral carotid artery stenosis Social History Tobacco Use Types Packs/Day Years Used Date Smoking Tobacco: Never Smokeless Tobacco: Never Comments Unknown Sex and Gender Information Value Date Recorded Sex Assigned at Not on file Legal Sex Female 4:40 PM CDT Gender Identity Not on file Sexual Orientation Not on file documented as of this encounter Plan of Treatment Upcoming Encounters Date Type Department Care Team ([facility] Contact Info) Description 04/05/2025 11:20 AM CDT Appointment [place] [facility] Scan [address] [place] [address] Darin Madrid MD [address] [place] [address] 04/05/2025 11:40 AM CDT [place] Scan [address] [place] [address] Darin Madrid MD [address] [place] [address] 04/05/2025 1:00 PM CDT Appointment [facility] [address] Vascular Surgery [address] [place] [phone] [place] [address] [place] [phone] documented as of this encounter Procedures Procedure Name Priority Date/Time Associated Diagnosis Comments US/VL CAROTID BILAT Routine 12/28/2024 1 1:15 AM CDT Bilateral carotid artery stenosis documented in this encounter Results * US/VL Carotid Bilat (12/28/2024 11:15 AM CDT) Anatomical Region Laterality Modality Head, Neck, Vascular Ultrasound Impressions 12/28/2024 7:08 PM CDT No evidence of intimal hyperplasia and/or stenosis within the right internal carotid artery stent. >70% stenosis within the left internal carotid artery. Patient will follow up in Vascular Surgery Clinic. Narrative 12/28/2024 7:08 PM CDT Indication: Carotid stenosis Status post right internal carotid artery stent: 10/13/2024 A duplex ultrasound examination with color flow was performed on the extracranial carotid arteries. RIGHT CAROTID SYSTEM There is calcified plaque within the mid and distal common carotid artery. There is no evidence of intimal hyperplasia within the internal carotid artery stent. The common (PSV 102cm/s) and external (PSV 153cm/s) carotid arteries are patent with no evidence of a significant stenosis. There is no evidence of an increase in blood flow velocities within the internal carotid artery stent or within the internal carotid artery (PSV 94cm/s, EDV 29cm/s, Ratio: 0.9). There is antegrade blood flow present in the vertebral artery (PSV 43cm/s). LEFT CAROTID SYSTEM There is evidence of calcified and non-calcified plaque in the carotid bulb, extending into the proximal segment of the internal carotid artery. The common (PSV 50cm/s) and external (PSV 93cm/s) carotid arteries are patent with no evidence of a significant stenosis. There is an increase in blood flow velocities in the proximal internal carotid artery, indicating the presence of a stenosis > or equal to 70% (PSV 450cm/s, EDV 167cm/s, Ratio: 9.0). There is antegrade blood flow present in the vertebral artery (PSV 92cm/s). us Darin Madrid MD RAD VASCULAR US Final Resul t documented in this encounter Visit Diagnoses Diagnosis Bilateral carotid artery stenosis Occlusion and stenosis of multiple and bilateral precerebral arteries without mention of cerebral infarction documented in this encounter Care Teams Certified Legal Investigator Relationship Specialty Start Date End Date Clinician, Not Found, [place] [address] PCP - General 10/13/24 documented as of this encounter
--- OUTSIDE RECORDS SUMMARY | 2024-12-28 11:30 | XMS_ITS | Encounter Summary ---
Author [facility] Address [address], [place] [address] Care Team Providers Care Care Process Manager Name Role Phone Clinician, Not Found MD Primary Care Provider Un available Reason for Referral * Procedure/Equipment (Routine) - Pending Review Specialty Diagnoses / Procedures Referred By Contac t Referred To Contact Diagnoses Bilateral carotid artery stenosis Procedures CT Angio Neck W/WO IV Cont Darin Madrid MD [address] [place] [address] Phone: tel: fax: Referral ID Status Reason Start Date Expiration Date V isits Requested Visits Authorized [id number] Pending Review 12/28/2024 03/29/2026 1 1 * Procedure/Equipment (Routine) - Pending Review Specialty Diagnoses / Procedures Referred By Contac t Referred To Contact Diagnoses Bilateral carotid artery stenosis Procedures CT Angio Head W/WO IV Cont Darin Madrid MD [address] [place] [address] Phone: tel: fax: Referral ID Status Reason Start Date Expiration Date V isits Requested Visits Authorized [id number] Pending Review 12/28/2024 03/29/2026 1 1 Reason for Visit * Reason Comments Post Op Exam Right TCAR 10/13/24 Encounter Details Date Type Department Care Team (Late st Contact Info) Description 12/28/2024 11:30 AM CDT Office Visit [facility] [place] [address] [facility] [address] [place] [phone] Darin Madrid MD [address] [place] [address] Bilateral carotid artery stenosis (Primary Dx) Social History Tobacco Use Types Packs/Day Years Used Date Smoking Tobacco: Never Smokeless Tobacco: Never Comments Unknown Sex and Gender Information Value Date Recorded Sex Assigned at Not on file Legal Sex Female 4:40 PM CDT Gender Identity Not on file Sexual Orientation Not on file documented as of this encounter Progress Notes * Sabina Clayton RN - 12/28/2024 11:30 AM CDT Will follow up in Mar with repeat CTA head/ neck and see Dr. Madrid on 04/05/25. Pre-procedure teaching completed for patient having a CTA scan. Preparing for CT scan patient education sheet given and reviewed with patient. Patient instructed on nothing to eat 3 hours prior to procedure but OK to keep hydrated with plenty of clear fluids. All questions answered. Patient was able to verbalize understanding of teaching. Will discuss Left sided TCAR at this time. Will stay on Plavix and ASA at this time. * Darin Madrid MD - 12/28/2024 11:30 AM CDT The patient comes in for follow-up after undergoing right trans carotid arterial revascularization done by me on October 13. She has a new ultrasound with results as noted noted below. The left side continues to have a high-grade stenosis which will still need to be addressed. Because of this, Iwould like for her to remain on Plavix. She does not wish to have any surgery done over the summer,which is reasonable. We discussed risks of stroke with medical management versus intervention. Her last surgery was uneventful, but she did get admitted to another hospital a couple of days after discharge due to some chest pain and shortness of breath which was found to be more of a cardiac issue.We will plan to get a repeat CT angiogram in late March since she would prefer to have surgery in May. All questions were answered, and she and her are in agreement with the above plans. US/VL Carotid Bilat Narrative: Indication: Carotid stenosis Status post right internal [...] present in the vertebral artery (PSV 92cm/s). Impression: No evidence of intimal hyperplasia and/or stenosis within the right internal carotid artery stent. >70% stenosis within the left internal carotid artery. Patient will follow up in Vascular Surgery Clinic. documented in this encounter Plan of Treatment Upcoming Encounters Date Type Department Care Team (Late st Contact Info) Description 04/05/2025 11:20 AM CDT [place] [facility] [address] [place], [place] [phone] Darin Madrid MD [address] [place] [address] 04/05/2025 11:40 AM CDT [place] [facility] [address] [place] [address] Darin Madrid MD [address] [place] [address] 04/05/2025 1:00 PM CDT Appointment [facility] [place] [address] V[facility] Surgery [address] [place] [phone] Darin Madrid MD [address] [place] [address] Scheduled Orders Name Type Priority Associated Diagnoses Orde r Schedule CT Angio Head W/WO IV Cont Imaging New Routine Bilateral carotid artery stenosis Expected: 12/28/2024 (Approximate), Expires: 12/28/2025 CT Angio Neck W/WO IV Cont Imaging New Routine Bilateral carotid artery stenosis Expected: 12/28/2024 (Approximate), Expires: 12/28/2025 documented as of this encounter Visit Diagnoses Diagnosis Bilateral carotid artery stenosis- Primary Occlusion and stenosis of multiple and bilateral precerebral arteries without mention of cerebral infarction documented in this encounter Care Teams Care Process Manager Relationship Specialty Start Date End Date Clinician, Not Found, [place] [address] PCP - General 10/13/24 documented as of this encounter
--- OUTSIDE RECORDS SUMMARY | 2025-01-25 10:20 | XMS_ITS | Encounter Summary ---
Author Organization [facility] Address [address] [place] [address] Care Team Providers Care Project Manager Entertainment And Media Name Role Phone Elsewhere, Pcp Primary Care Provider Unavailabl e Reason for Visit * Outpatient (Routine) - Closed Specialty Diagnoses / Procedures Referred By Contac t Referred To Contact Diagnoses Pain Hip Left Procedures DX Hip And Pelvis Left 2-3 Views DX Hip Left 2-3 Views Winter Wasserman P.A.-C., P.A., M.S. [address] [place] [phone] Phone: tel: fax: [facility] Region Referral ID Status Reason Start Date Expiration Date Visits Re quested Visits Authorized [id number] Closed 01/24/2025 04/26/2026 1 1 Encounter Details Date Type Department Care Team (Latest Contact Info) Description 01/25/2025 10:20 AM CDT - 01/25/2025 11:59 PM CDT Hospital Encounter Department of Radiology, [facility], in [place], [place] [address] [place] [phone] Winter Wasserman P.A.-C., P.A., M.S. 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 [address] [place] [phone] Discharge Disposition: Home or Self Care 02/21/2025 10:15 AM CDT Comprehensive Visit Department of Physical Medicine and Rehabilitation in [place], [place] [address] [place] [phone] Winter Wasserman P.A.-C., P.A., M.S. [address] [place] [phone] Armida Rangel P.T. [address] [place] [phone] documented as of this encounter Procedures Procedure [...] documented as of this encounter Care Teams Project Manager Entertainment And Media Relationship Specialty Start Date End Date Elsewhere, Pcp PCP - General Family Medicine 12/21/20 documented as of this encounter
--- OUTSIDE RECORDS SUMMARY | 2025-01-25 10:45 | XMS_ITS | Encounter Summary ---
Author Organization [facility] Address [address] [place] [address] Care Team Providers Care Cutting Department Supervisor Name Role Phone Elsewhere, Pcp Primary Care Provider Unavailabl e Reason for Referral * Physical Therapy (Routine) - Authorized Specialty Diagnoses / Procedures Referred By Contac t Referred To Contact Diagnoses Pain Hip Left Trochanteric Bursitis Left Hip Procedures PT Evaluate and treat Winter Wasserman P.A.-C., P.A., M.S. [address] [place] [phone] Phone: tel: fax: [facility] Region Referral ID Status Reason Start Date Expiration Date V isits Requested Visits Authorized [id number] Authorized 01/25/2025 04/27/2026 99 99 Reason for Visit * Reason Comments Pain * Appointment Request (Routine) - Closed Specialty Diagnoses / Procedures Referred By Contac t Referred To Contact Orthopedic Surgery Diagnoses Pain Hip Left Referral ID Status Reason Start Date Expiration Date Visits Re quested Visits Authorized [id number] Closed 01/24/2025 04/26/2026 1 1 Encounter Details Date Type Department Care Team (Latest Contact Info) Description 01/25/2025 10:45 AM CDT Comprehensive Visit Department of Orthopedic Surgery in [address] [phone] Winter Wasserman P.A.-C., P.A., M.S. 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 - 01/25/2025 10:45 AM CDT [facility] Orthopedic Surgery New Patient Clinic Note Name: [...] fracture in 2012. This was done in [facility]. She did unfortunately sustained a PE [...] arterial revascularization by Dr. Darin Madrid at [facility] on 10/13/24. She did have a [...] Wasserman PA-C Orthopedic Surgery & Sports Medicine [facility] documented in this encounter Plan of Treatment Upcoming Encounters Date Type Department Care Team (Latest Contact Info) Description 02/20/2025 5:00 PM CDT Appointment Department of Radiology, [facility], in [place], [place] [address] [place] [address] Winter Wasserman P.A.-C., P.A., M.S. [address] [place] [phone] Discharge Disposition: Home or Self Care 02/21/2025 10:15 AM CDT Comprehensive Visit Department of Physical Medicine and Rehabilitation in [place], [place] [address] [place] [phone] Winter Wasserman P.A.-C., P.A., M.S. [address] [place] [phone] Armida Rangel P.T. [address] [place] [phone] documented as of this encounter Visit Diagnoses Diagnosis Pain Hip Left- Primary Trochanteric Bursitis Left Hip documented in this encounter Additional Health Concerns Assessment Noted Time PHQ-9 Depression Total Score: 8 11/09/19 25 1:53 PM CDT documented as of this encounter Care Teams Cutting Department Supervisor Relationship Specialty Start Date End Date Elsewhere, Pcp PCP - General Family Medicine 12/21/20 documented as of this encounter
--- OUTSIDE RECORDS SUMMARY | 2025-01-29 15:34 | XMS_ITS | Encounter Summary ---
Author Organization [facility] Address [address] [place] [address] Care Team Providers Care Business Objects Architect Name Role Phone Tonio Castillo MD Primary Care Provider [phone] Tonio Castillo MD Unavailable Tonio Castillo MD Unavailable Alexander Zepeda MD Unavailable [phone] Marcelo Espinal MD Unavailable Blayne Giraldo PA-C Unavailable [phone] Blayne Giraldo PA-C Unavailable [phone] Tonio Castillo MD Unavailable Encounter Details Date Type Department Care Team (Late st Contact Info) Description 05/20/2017 [facility] Respiratory Care [address] , [address] [place] [address] Tonio Castillo MD [address] [place] [address] Dyspnea on exertion (Primary Dx) Social History Tobacco Use Types Packs/Day Years Used Date Smoking Tobacco: Never Smokeless Tobacco: Never Alcohol Use Standard Drinks/Week Comments Yes 0 (1 standard drink = 0.6 oz pur e alcohol) 1 glass every couple months Comments No Sex and Gender Information Value Date Recorded Sex Assigned at Not on file 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 Gender Identity Not on file Sexual Orientation Not on file documented as of this encounter Plan of Treatment Not on file documented as of this encounter Results * Hemoglobin (05/20/2017 1:40 PM CDT) Hemoglobin 11.8 11.7 - 15.7 g/dL 05/20/2017 2:27 PM CDT [facility] Blood specimen (specimen) 05/20/2017 1:40 PM CDT 05/20/2017 1:44 PM CDT us Tonio Castillo MD LAB - BLOOD ORDERABLES Final Res ult [facility] [address] [address], [facility] [phone] documented in this encounter Visit Diagnoses Diagnosis Dyspnea on exertion- Primary Other dyspnea and respiratory abnormality documented in this encounter Additional Health Concerns Infection Onset Date Last Indicated Resolved Time COVID-19 12/17/2020 12/17/2020 01/07/2021 11:4 0 PM CDT documented as of this encounter Care Teams Business Objects Architect Relationship Specialty Start Date End Date Tonio Castillo MD [address] [place] [address] PCP - General Family Practice 10/12/16 Tonio Castillo MD [address] [place] [address] PCP - Assigned PCP 09/20/16 10/18/18 Tonio Castillo MD [address] [place] [address] Assigned PCP 09/20/16 07/31/22 [place] [address] [place] [address] Assigned Neuroscience Provider 06/07/20 12/13/[address] [facility] [address] [place] [address] Assigned Musculoskeletal Provider 06/07/20 02/01/21 Blayne Giraldo PA-C [address] [place] [place] [address] [place] [address] Assigned Surgical Provider 10/30/20 Blayne Giraldo PA-C [address] [place] [address] Assigned Musculoskeletal Provider 02/02/21 11/01/21 [place] [address] [place] [address] Assigned PCP 10/10/22 03/05/23 documented as of this encounter
--- OUTSIDE RECORDS SUMMARY | 2025-01-29 15:34 | XMS_ITS | Encounter Summary ---
Author Organization [facility] Address [address] [place] [address]. [place] [address] Care Team Providers Care Piper Helper Name Role Phone Tonio Castillo MD Primary Care Provider [phone] Tonio Castillo MD Unavailable Tonio Castillo MD Unavailable Alexander Zepeda MD Unavailable Marcelo Espinal MD Unavailable Blayne Giraldo PA-C Unavailable [phone] Blayne Giraldo PA-C Unavailable [phone] Tonio Castillo MD Unavailable Reason for Visit * Reason Onset Date Comments Erroneous encounter-disregard 06/16/2018 Encounter Details Date Type Department Care Team (Late st Contact Info) Description 06/16/[address] [phone] Tonio Castillo MD [address] [place] [address] Erroneous encounter-disregard Social History Tobacco Use Types Packs/Day Years Used Date Smoking Tobacco: Never Smokeless Tobacco: Never Alcohol Use Standard Drinks/Week Comments Yes 0 (1 standard drink = 0.6 oz pur e alcohol) 1 glass every couple months Comments No Sex and Gender Information Value Date Recorded Sex Assigned at Not on file Legal Sex Female 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 Gender Identity Not on file Sexual Orientation Not on file 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 Not on file Not on fi le documented as of this encounter Plan of Treatment Not on file documented as of this encounter Visit Diagnoses Not on filedocumented in this encounter Additional Health Concerns Infection Onset Date Last Indicated Resolved Time COVID-19 12/17/2020 12/17/2020 01/07/2021 11:4 0 PM CDT documented as of this encounter Care Teams Piper Helper Relationship Specialty Start Date End Date Tonio Castillo MD [address] [place] [address] [id number] PCP - General Family Practice 10/12/16 Tonio Castillo MD [address] [place] [address] 328182 PCP - Assigned PCP 09/20/16 10/18/18 Tonio Castillo MD [address] [place] [address] [id number] Assigned PCP 09/20/16 07/31/22 [place] [address] [facility] [place] [id number] Assigned Neuroscience Provider 06/07/20 12/13/21 Marcelo Espinal MD [facility] [address] [address] [id number] Assigned Musculoskeletal Provider 06/07/20 02/01/21 Blayne Giraldo PA-C [address] [facility] [place] [address] Assigned Surgical Provider 10/30/20 Blayne Giraldo PA-C [address] [place] [address] Assigned Musculoskeletal Provider 02/02/21 11/01/21 [place] [address] [place] [address] Assigned PCP 10/10/22 03/05/23 documented as of this encounter
--- OUTSIDE RECORDS SUMMARY | 2025-01-29 15:34 | XMS_ITS | Clinical Summary ---
Author Organization [facility] Address [address] [place] [address]. [place] [address] Care Team Providers Care Advertising Representative Name Role Phone Tonio Castillo MD Primary Care Provider [phone] Allergies No known active allergies Medications levothyroxine (SYNTHROID/LEVOT HROID) 100 MCG tabletIndication s:Hypothyroidism , unspecified type Take 1 tablet (100 mcg) by mouth daily 90 tablet 3 03/04/2020 Active Active Problems Problem Noted Date Diagnosed Date S/P lumbar spinal fusion 04/09/2020 Primary osteoarthritis involving multiple joints 03/30/2019 Antibiotic prophylaxis for d ental procedure indicated due to prior joint replacement 06/16/2018 History of pulmonary embolism 02/02/2018 Mixed hyperlipidemia 08/14/2017 Hypothyroidism, unspecified type 08/11/2017 Pulmonary nodules 05/17/2017 PHN (postherpetic neuralgia) Lumbar stenosis Overview (02/22/2020): central and foraminal Resolved Problems Problem Noted Date Diagnosed Date Resolved Date Hx of decompressive lumbar laminectomy 04/23/2020 07/16/2020 Spinal stenosis of lumbar re gion with radiculopathy 02/27/2020 07/16/2020 Overview (02/27/2020): Added automatically from request for surgery [id number] Lumbar radiculopathy 11/28/2019 020 Advanced directives, counseling/discussion 05/17/2017 07/04/2018 Overview (05/17/2017): Advance Care Planning 05/17/2017: ACP Review of Chart / Resources Provided: Reviewed chart for advance care plan. Rebeka Williamson has no plan or code status on file however states presence of ACP document. Copy requested. Added by Marina Ho Pulmonary emboli (H) negativ e hypercoag workup 2016. After hip surgery 2012 - was on HRT 08/16/2012 11/30/2018 CARDIOVASCULAR SCREENING; LD L GOAL LESS THAN 130 08/11/2017 Immunizations Immunization Administration Dates Next Due Pneumococcal 23 valent 11/21/2012 Pneumococcal, Unspecified 11/21/2012,11/21/2002 Tetanus 11/13/2012 Family History Medical History Relation Comments Clotting Disorder Brother of PE Osteoarthritis Sister 1 Myocardial Infarction Son LAD infarc t Relation Status Comments Brother Father Maternal Grandfather Maternal Grandmother Mother Paternal Grandfather Paternal Grandmother Sister 1 Alive Sister 2 Alive Sister 3 Alive Son Social History Tobacco Use Types Packs/Day Years Used Date Smoking Tobacco: Never Smokeless Tobacco: Never Tobacco Cessation:Counseling Given: No Alcohol Use Standard Drinks/Week Comments Yes 0 (1 standard drink = 0.6 oz pur e alcohol) 1 glass every couple months PHQ-2 Answer Date Recorded PHQ-2 Score 0 03/30/2019 Adolescent Education Answer Date Record ed Getting School Help Needed Not on file 05/23 Comments No Sex and Gender Information Value Date Recorded Sex Assigned at Not on file Legal Sex Female 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 Gender Identity Not on file Sexual Orientation Not on file 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 Not on file Not on fi le Last Filed Vital Signs Vital Sign Reading Time Taken Comments Blood Pressure 120/52 02/17/2023 10:14 AM CDT Pulse 85 02/17/2023 10:14 AM CDT Temperature 36.7 C (98 F) 12/17/2020 10:14 PM CDT Respiratory Rate 18 12/17/2020 10:1 4 PM CDT Oxygen Saturation 95% 12/17/2020 11: 35 PM CDT Inhaled Oxygen Concentration - - Weight 72.5 kg (159 lb 12.8 oz) 020 11:50 AM CDT Height 157.5 cm (5' 2) 06/10/2020 11:5 0 AM CDT Body Mass Index 29.23 06/10/2020 11:50 AM CDT Plan of Treatment Health Maintenance Due Date Last Done Comments ANNUAL REVIEW OF HM ORDERS 1940 DEXA 1940 ZOSTER VACCINE (1 of 2) 12/10/1989 MEDICARE ANNUAL WELLNESS VISIT 12/10/2004 RSV VACCINE (1 - 1-dose 75+ series) 12/10/2014 DTAP/TDAP/TD VACCINE (1 - Tdap) 01/29/2018 01/28/2018, 11/13/2012, 11/13/2012 FALL RISK ASSESSMENT 05/17/2018 05/17/2017 LIPID 08/11/2018 08/11/2017 TSH W/FREE T4 REFLEX 03/04/2021 03/04/2020, 03/04/2020, 03/30/2019, Additional history exists COVID-19 VACCINE ( season) 2024 ADVANCE CARE PLANNING 07/21/2024 07/21/2019 , 07/04/2018, 05/17/2017 PHQ-2 (once per calendar year) 2024 03/30/2019, 05/17/2017 INFLUENZA VACCINE (Season Ended) 2025 PNEUMOCOCCAL VACCINE 50+ YEARS Completed 11/21/2012, 11/21/2012, 01/28/2005, Additional history exists HPV VACCINE Aged Out No longer eligi ble based on patient's age to complete this topic MENINGITIS VACCINE Aged Out No longer eligible based on patient's age to complete this topic Procedures Procedure Name Priority Date/Time Associated Diagnosis Comments TSH Routine 03/04/2020 2:44 PM CDT Hypothyroidism, unspecified type LIPID REFLEX TO DIRECT LDL PANEL Routine 08/11/2017 10:55 AM CASH MANAGER Lipid screening from Last 3 Months or Most Recently Relevant to Health Maintenance Results * TSH (03/04/2020 2:44 PM CDT) TSH 2.08 0.40 - 4.00 mU/L 03/05/2020 10:26 AM CDT [facility] Blood specimen (specimen) 03/04/2020 2:44 PM CDT 03/04/2020 2:45 PM CDT us Tonio Castillo MD LAB - BLOOD ORDERABLES Final Res ult Performing Organization Address [facility] Co de Phone Number [facility] [address] [address] * (ABNORMAL) Lipid panel reflex to direct LDL Fasting (08/11/2017 10:55 AM CASH MANAGER) Cholesterol 291(H) <200 mg/dL 08/12/2017 9:12 AM CASH MANAGER [facility] Comment:Desirable: <200 mg/d l Triglycerides 88 <150 mg/dL 08/12/2017 9:12 AM CASH MANAGER [facility] Comment:Fasting specimen HDL Cholesterol 60 >49 mg/dL 9:19 AM [facility] LDL Cholesterol Calculated 213(H) <100 mg/dL 08/12/2017 9:19 AM CASH MANAGER [facility] Comment: Above desirable: 100-129 mg/dl Borderline High: 130-159 mg/dL High: 160-189 mg/dL Very high: >189 mg/dl Non HDL Cholesterol 231(H) <130 mg/dL 08/12/2017 9:19 AM CASH MANAGER [facility] Comment: Above Desirable: 130-159 mg/dl Borderline high: 160-189 mg/dl High: 190-219 mg/dl Very high: >219 mg/dl Blood specimen (specimen) 08/11/2017 10:55 AM CASH MANAGER 08/11/2017 11:00 AM CASH MANAGER us Sabina Escobar PA-C LAB - BLOOD ORDERABLES F inal Result Performing Organization Address [facility]/ZIP Co de Phone Number [facility] [address] [place] [phone] from Last 3 Months or Most Recently Relevant to Health Maintenance Insurance [employer] MEDICARE Advance Directives For more information, please contact: [phone] Documents on File Type Date Recorded Patient Presser Automatic Expl anation Advance Directives and Living Will 07/21/2019 1:53 PM Health Care Directiv e 06-15-19 Healthcare Agents on File Name Relationship Healthcare Agent [facility] Communication Manuel Williamson Spouse Health Care Agent Jimmy Williamson Son First Alternate Health Care Agent Care Teams Advertising Representative Relationship Specialty Start Date End Date Tonio Castillo MD [address] [place] [id number] PCP - General Family Practice 10/12/16
--- OUTSIDE RECORDS SUMMARY | 2025-01-29 15:34 | XMS_ITS | Clinical Summary ---
Author Organization [facility] Address [facility] [place] [address] Care Team Providers Care Tube Winder Hand Name Role Phone Melani Woods MD Primary Care Prov ider Allergies No known active allergies Medications acetaminophen (TYLENOL) 325 mg tabletIndicatio ns:Intractable headache, unspecified chronicity pattern, unspecified headache type Take 2 Tablets (650 mg) by mouth every 4 hours if needed for Pain. Max acetaminophen dose: 4000mg in 24 hrs. 20 Tablet 4 Active multivitamin (MVI) tablet Take 1 Tablet by mouth once daily. Active aspirin chewable 81 mg chewable tabletIndicatio ns:Coronary artery disease involving [place] coronary artery of [place] heart without angina pectoris Take 1 Tablet (81 mg) by mouth or nasogastric tube once daily. 90 Tablet 3 07/07/2024 6:53 PM BODY MAKE UP ARTIST 4 Active clopidogreL (PLAVIX) 75 mg tabletIndicatio ns:Coronary artery disease involving [place] coronary artery of [place] heart without angina pectoris Take 1 Tablet (75 mg) by mouth once daily in the morning. 90 Tablet 3 07/07/2024 6:53 PM BODY MAKE UP ARTIST 4 Active coenzyme q10 100 mg capIndications: Statin intolerance Take 1 Capsule (100 mg) by mouth once daily. 4 Active ezetimibe (ZETIA) 10 mg tabletIndicatio ns:Dyslipidemia Take 1 Tablet (10 mg) by mouth once daily. 90 Tablet 1 07/07/2024 6:53 PM BODY MAKE UP ARTIST 4 Active nitroglycerin (NITROSTAT) 0.4 mg sublingual tabletIndicatio ns:Coronary artery disease involving [place] coronary artery of [place] heart without angina pectoris Place 1 Tablet (0.4 mg) under the tongue every 5 minutes if needed for Chest pain 1st choice (Hold if SBP less than 90 mmHg). Up to 3 tablets in 15 minutes. 25 Tablet 3 07/07/2024 6:53 PM BODY MAKE UP ARTIST 4 Active rosuvastatin (CRESTOR) 5 mg tabletIndicatio ns:Coronary artery disease involving [place] coronary artery of [place] heart without angina pectoris,Dyslip idemia Take 1 Tablet (5 mg) by mouth at bedtime. 90 Tablet 3 07/07/2024 6:53 PM BODY MAKE UP ARTIST 4 Active furosemide 20 mg tabletIndicatio ns:Acute heart failure with preserved ejection fraction (HFpEF) (HC) Take 1 Tablet (20 mg) by mouth once daily in the morning. 90 Tablet 3 5 Active Active Problems Problem Noted Date Diagnosed Date Disorder of pulmonary circulation 10/24/2024 Overview (10/24/2024): AI Summary: As of 10/19/24: The patient has a history of pulmonary embolism, with documented events in 02/14/2013, 06/19/2014, and a subsequent event after hip surgery. On 10/18/2024, a CT pulmonary embolism protocol and CT coronary arteries were negative for PE and new obstructive CAD, despite persistent shortness of breath and EKG showing ST depression. A CT pulmonary embolism performed on 10/18/2024 was negative for PE, and another on 08/05/2023 also showed no acute pulmonary embolism. 10/19/24: BP 124/57 10/16/24: A1c 5.8 % 07/18/24: ESR 37 mm/hr On meds: aspirin, clopidogrel, coenzyme Q10 / Vitamin E (external), ezetimibe, furosemide, nitroglycerin, rosuvastatin, spironolactone, ubidecarenone Recent encounter dx: 07/14/24: Appointment - [facility] 04/23/13: Support OP Encounter - [facility] [place] 02/20/13: Appointment - [facility] [place] 02/14/13: Appointment - [facility] [place] Recent notes: 10/02/24: Progress Notes - Interventional Cardiology Consult Note by Franko Malone MD ... [+] ? PE (pulmonary embolism) 08/07/24: Progress Notes by NELL Hancock ... [+] ? History of pulmonary embolism 06/19/2014 ... [+] ? PE (pulmonary embolism) 02/14/2013 07/18/24: Progress Notes by Juan J Bauer DO (from [facility]) ... [+] Other History: Severe bilateral internal carotid artery stenosis, left hip fracture, retinal hemorrhage, coronary artery disease, atrophic vaginitis, vitamin-D deficiency, history of pulmonary embolism, hypothyroidism, lumbar stenosis, hyperlipidemia, osteoarthritis, leg length discrepancy, post herpetic neuralgia ... [+] Had subsequent pulmonary embolism after hip surgery. 07/14/24: Progress Notes - Nursing Notes by Melani Woods MD ... [+] ? PE (pulmonary embolism) I26.99 ... [+] ? History of pulmonary embolism Z86.711 07/04/24: H&P - Outpatient Interventional Cardiology Updated H and P Note by Alexander Hopkins MD ... 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 Acute non-ST elevation myocardial infarction (NS ELOISA) 10/16/2024 Acute heart failure with pre served ejection fraction (HFpEF) 10/16/2024 SOB (shortness of breath) 10/15/2024 Elevated brain natriuretic peptide (BNP) level 0 10/15/2024 Coronary artery disease invo lving chalkyitsik coronary artery of [place] heart without angina pectoris 07/04/2024 Left main coronary artery disease 07/04/2024 ASHD (arteriosclerotic heart disease) 07/04/[address] angiography 07/04/2024 Dyslipidemia 07/04/2024 Statin intolerance 07/04/2024 Bilateral carotid artery stenosis 07/04/2024 Lumbar stenosis 03/14/2024 Overview (06/12/2024): central and foraminal PHN (postherpetic neuralgia) 03/14/2024 Polymyalgia rheumatica 01/27/2024 S/P lumbar spinal fusion 04/09/2020 Primary osteoarthritis involving multiple joints 03/30/2019 Mixed hyperlipidemia 08/14/2017 Pulmonary nodules 05/17/2017 History of pulmonary embolism 06/19/2014 Urinary, incontinence, stress female 06/06/2013 Rectocele 06/06/2013 Incontinence of feces 06/06/2013 History of pulmonary embolus (PE) 02/14/2013 Anticoagulation monitoring, INR range 2-3 2012 Hypothyroidism 04/29/2012 Osteoarthrosis 04/29/2012 Nocturnal leg cramps 04/29/2012 Encounters Date Type Department Care Team Description 12/20/2024 10:00 AM CDT Office Visit [facility] [address] [facility] [address] [place] [address] Rebeka Hatfield PA Follow Up (1 month followup / labs prior w/PMD. PT states feeling not bad. no cardiac symptoms today. nothing to note.) 12/20/2024 Travel 12/01/2024 10:15 AM CDT Office Visit [facility] [address] [place] [address] Melani Woods MD Post-op Pain/problem (unable to function - not able to walk or do daily activities/SOB - Mostly with activity, sometimes at rest. /) 12/01/2024 Travel 11/16/2024 11:00 AM CDT Office Visit [facility] - [address] [place] [phone] Lor Holt, TANI Follow Up ([facility]/10/18 CT's, 10/16 echo, & 10/15 xray /Pt states feeling well today, thinks she cuts the furosemide in half and would like to stop taking spironolactone. ) 11/16/2024 Travel 11/07/2024 Nurse Triage [facility] [address] [place] [address] Melani Woods MD Urinary Problem 10/31/2024 10:48 AM CDT - 10/31/2024 11:59 PM CDT Hospital Encounter [facility] [address] [place] [address] Maninder Dailey, Coronary artery disease involving chalky[place]ik coronary artery of [place] heart without angina pectoris 10/31/2024 Telephone [facility] [address] [facility] [address] [place] [address] Case, NELL Sen Medication Problem (Nausea) 10/31/2024 Travel from Last 3 Months Immunizations Immunization Administration Dates Next Due Pneumococcal Poly,23-Valent (Pneumovax) 11/22/19 13,01/28/2005,11/21/2002 Pneumococcal, Unspecified 11/21/2012,11/21/2002 Td, Preservative Free (age >= 7 Years) 8,11/13/2012 Tetanus Toxoid 11/13/2012 Family History Medical History Relation Name Comments Diabetes Father Hyperlipidemia Father Diabetes Paternal Grandfather Good Health Sister 4 Good Health Sister 5 Good Health Sister 6 Sudden Son 1 Good Health Son 4 Good Health Son 5 Psychiatric illness Son 6 bipolar Relation Name Status Comments Brother (Age 64) [place] acc[place] vs [place] Father (Age 98) COPD Mother (Age 92) Parkinson' s Paternal Grandfather Sister 1 Alive Sister 2 Alive Sister 3 Alive Sister 4 Sister 5 Sister 6 Son 1 Alive Son 2 Alive Son 3 Alive Son 4 Son 5 Son 6 Social History Tobacco Use Types Packs/Day Years Used Date Smoking Tobacco: Never Smokeless Tobacco: Never Tobacco Cessation:Counseling Given: Yes Alcohol Use Standard Drinks/Week Comments No 0 (1 standard drink = 0.6 oz pur e alcohol) Social Connections Answer Date Recorded Do you often feel lonely or isolated from those around you? 0 07/05/2024 Financial Resource Strain Answer Date R ecorded Difficulty of Paying Living Expenses 3 06/21/2024 Difficulty of Paying Living Expenses Not on file 06/21/2024 Food Insecurity Answer Date Recorded Do you worry your food will run out before you are able to buy more? 1 07/05/2024 Transportation Needs Answer Date Record ed Does lack of transportation keep you from medica l appointments? 1 07/05/2024 Does lack of transportation keep you from work, meetings or getting things that you need? 1 07/05/2024 Housing Stability Answer Date Recorded What is your housing situation today? 1 07/05/2024 Interpersonal Safety Answer Date Record ed Are you being hit, kicked, p ushed or yelled at (see row info)? No 10/15/2024 Interpersonal Safety Abuse 12 - 18 Not on file 10/15/2024 Interpersonal Safety Ambulatory Vulnerability No t on file 10/15/2024 Utilities Answer Date Recorded Do you have trouble paying f or utilities (for example, heat, electricity, water, phone)? 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 Not on file Not on file N ot on file Obstetrics History Para Term AB IAB SAB Ectopic Multiple Livin g Live Births 3 3 Date Outcome GA Total Labor Labor/2nd/3rd Weight Sex Type Anes PTL Bernadette A1 A5 Name Clin Last Filed Vital Signs Vital Sign Reading Time Taken Comments Blood Pressure 100/58 12/20/2024 9:55 AM CDT Pulse 91 12/20/2024 9:55 AM CDT Temperature 36.4 C (97.5 F) 10/19/2024 11:48 AM BODY MAKE UP ARTIST Respiratory Rate 14 10/19/2024 11:4 8 AM BODY MAKE UP ARTIST Oxygen Saturation 95% 12/20/2024 9:55 AM CDT Inhaled Oxygen Concentration - - Weight 64.8 kg (142 lb 14.4 oz) 12/20/2024 9:55 AM CDT Height 157.5 cm (5' 2) 12/20/2024 9:55 AM CDT Body Mass Index 26.14 12/20/2024 9:55 AM CDT Plan of Treatment Upcoming Encounters Date Type Department Care Team (Late st Contact Info) Description 03/22/2025 11:15 AM CDT Office Visit [facility] [address] [facility] [address] [place] [address] [place] [address] [facility] [address] [place], [place] [id number] Health Maintenance Due Date Last Done Comments Tdap 12/10/1951 Depression screening for age 12+ 1952 Zoster (shingles) series for age 50+ (1 of 2) 12/10/1989 DEXA/DXA scan for age 65+ 12/10/2004 Pneumococcal series for age 50+ (2 of 2 - PCV) 11/21/2013 11/21/2012, 11/21/2012, 01/28/2005, Additional history exists RSV vaccine for adults or (1 - 1-dose 75+ series) 12/10/2014 Medicare Wellness for age 65+ 01/23/2015 01/22/2014 COVID-19 vaccine series ( season) 2024 Influenza Vaccine (Season Ended) 2025 BMI (ht and wt on same day) for age 18+ 12/20/2025 12/20/2024, 11/16/2024, 10/02/2024, Additional history exists Tetanus booster 01/29/2028 01/28/2018, 11/13/2012 Hepatitis B series for 19+ Aged Out N o longer eligible based on patient's age to complete this topic Procedures Procedure Name Priority Date/Time Associated Diagnosis Comments PRO-BNP Routine 12/01/2024 10:53 AM CDT Heart failure with preserved ejection fraction, unspecified HF chronicity (HC) BASIC METABOLIC PANEL Routine 12/01/2024 10:53 AM CDT Heart failure with preserved ejection fraction, unspecified HF chronicity (HC) from Last 3 Months Results * PRO-BNP (12/01/2024 10:53 AM CDT) NT PROBNP 283 <450 pg/mL [email or web address] Blood BLOOD SPECIMEN / Unknown 12/01/2024 10:53 AM CDT 12/01/2024 10:55 AM CDT Lor Holt DRAFTER [employer]URAL S[employer]S Final Resu lt Performing Organization Address City/[facility]/ZIP Co de Phone Number [facility] [address] [place] [address], [place] [phone] [facility] [address] [place] [address] * (ABNORMAL) BASIC METABOLIC PANEL (12/01/2024 10:53 AM CDT) [facility] GLUCOSE 103(H) 65 - 99 mg/dL [facility] Comment: Fasting reference interval For someone without known diabetes, a glucose value between 100 and 125 mg/dL is consistent with prediabetes and should be confirmed with a follow-up test. UREA NITROGEN (BUN) 8 7 - 25 mg/dL [facility] CREATININE 0.68 0.60 - 0.95 mg/dL [facility] EGFR 86 > OR = 60 mL/min/1. 73m2 [facility] BUN/CREATININE RATIO SEE NOTE: 6 - 22 (calc) [facility] Comment: Not Reported: BUN and Creatinine are within reference range. SODIUM 141 135 - 146 mmol/L [facility] POTASSIUM 4.1 3.5 - 5.3 mmol/L [facility] CHLORIDE 104 98 - 110 mmol/L [facility] CARBON DIOXIDE 29 20 - 32 mmol/L [facility] ELECTROLYTE BALANCE 8 7 - 17 mmol/L (calc) [facility] CALCIUM 9.3 8.6 - 10.4 mg/dL [facility] Blood BLOOD SPECIMEN / Unknown 12/01/2024 10:53 AM CDT 12/01/2024 10:55 AM CDT Lor Holt DRAFTER STRUCTURAL CHEMISTRY Final Resu lt Performing Organization Address City/[facility]/ZIP Co de Phone Number [facility] [address] [place] [address], [place] [phone] [facility] [address] [place] [address] from Last 3 Months Insurance MEDICARE PART A HB ONLY MEDICA [id number] PB ONLY MEDICARE PART B HB ONLY MEDICA PRIME SOLUTION HB Advance Directives * DNR (Latest Code Status on File) Date Activated Date Inactivated Comments 10/16/2024 2:44 AM 10/19/2024 5:29 PM Question Answer Comments Code Status Discussion: Reviewed Preferences * Full Code Date Activated Date Inactivated Comments 10/16/2024 1:21 AM 10/16/2024 2:44 AM Question Answer Comments Code Status Discussion: Reviewed Preferences * Full Code Date Activated Date Inactivated Comments 07/04/2024 1:33 PM 07/08/2024 3:30 PM Question Answer Comments Code Status Discussion: Reviewed Preferences * Full Code Date Activated Date Inactivated Comments 07/04/2024 9:45 AM 07/04/2024 1:33 PM Question Answer Comments Code Status Discussion: Unable to Assess Preferences, Provider to review later * DNR Date Activated Date Inactivated Comments 11/23/2023 10:41 AM 11/23/2023 4:12 PM Question Answer Comments Code Status Discussion: Reviewed Preferences Care Teams Tube Winder Hand Relationship Specialty Start Date End Date Melani Woods MD [facility] [place] [address] PCP - General Family Practice 06/12/24
--- OUTSIDE RECORDS SUMMARY | 2025-01-29 15:35 | XMS_ITS | Clinical Summary ---
Author Organization [facility] Address [address] [place] [address] Care Team Providers Care Engraver Block Name Role Phone Clinician, Not Found MD Primary Care Provider Un available Source Comments You are receiving this document as you are listed as the primary care provider,follow-up provider, or the patient has been referred to you for consultation.This is in compliance with the Medicare and[facility] EHR Incentive Program,which states Providers who transition their patient to another setting of careor provider of care or refers their patient to another provider of care shouldprovide summary care record for each transition of care or referral. [employer] Allergies No known active allergies Medications acetaminophen (TYLENOL) 325 MG tablet Take 2 Tablets (650 mg) by mouth every 4 hours as needed for Pain. 11/23/2023 Active clopidogrel (PLAVIX) 75 MG tablet Take 1 Tablet (75 mg) by mouth daily. 90 Tablet 3 02/10/2024 Active aspirin 81 MG chewable tablet Chew and swallow 1 Tablet (81 mg) by mouth daily. Active coenzyme Q-10 100 MG capsule Take 1 Capsule (100 mg) by mouth daily. Active ezetimibe (ZETIA) 10 MG tablet Take 1 Tablet (10 mg) by mouth daily. Active Multiple Vitamin (MULTIVITAMIN ADULT OR) Take 1 Tablet by mouth daily. Active nitroglycerin (NITROSTAT) 0.[address] 1 Tablet (0.4 mg) under tongue every 5 minutes as needed for Chest Pain. If no relief after 5 min call 911;continue 1 tab every 5 min max 3 tab Active rosuvastatin (CRESTOR) 5 MG tablet Take 1 Tablet (5 mg) by mouth daily. Active traMADol (ULTRAM) 50 MG tablet Take 1 Tablet (50 mg) by mouth every 6 hours as needed for Pain. 10 Tablet 10/13/2024 Active Active Problems Problem Noted Date Diagnosed Date Bilateral carotid artery stenosis 09/07/2024 Lumbar stenosis 03/14/2024 Overview (03/14/2024): central and foraminal PHN (postherpetic neuralgia) 03/14/2024 Polymyalgia rheumatica 01/27/2024 S/P lumbar spinal fusion 04/09/2020 Primary osteoarthritis involving multiple joints 03/30/2019 History of pulmonary embolism 02/02/2018 Mixed hyperlipidemia 08/14/2017 Pulmonary nodules 05/17/2017 Incontinence of feces 06/06/2013 Rectocele 06/06/2013 Urinary, incontinence, stress female 06/06/2013 Hypothyroidism 04/29/2012 Nocturnal leg cramps 04/29/2012 Osteoarthrosis 04/29/2012 Resolved Problems Problem Noted Date Diagnosed Date Resolved Date 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 [address] Grover Singh 12/28/2024 11:30 AM CDT Office Visit [facility] [address] Vascular Surgery [address] [place] [phone] Darin Madrid MD Bilateral carotid artery stenosis (Primary Dx) 12/28/2024 11:00 AM CDT Ancillary Procedure [facility] [address] Vascular Lab [address] [place] [address] Darin Madrid MD Bilateral carotid artery stenosis from Last 3 Months Social History Tobacco Use Types Packs/Day Years Used Date Smoking Tobacco: Never Smokeless Tobacco: Never Tobacco Cessation:Counseling Given: Not Answered Comments Unknown Sex and Gender Information Value Date Recorded Sex Assigned at Not on file Legal Sex Female 4:40 PM CDT Gender Identity Not on file Sexual Orientation Not on file Last Filed Vital Signs Vital Sign Reading Time Taken Comments Blood Pressure 111/56 10/25/2024 11:03 AM CDT Pulse 94 10/25/2024 11:03 AM CDT Temperature 36.7 C (98.1 F) 10/14/2024 11:39 AM ASSEMBLER DC FIELD RING Respiratory Rate 16 10/14/2024 11:3 9 AM ASSEMBLER DC FIELD RING Oxygen Saturation 98% 10/14/2024 11: 39 AM ASSEMBLER DC FIELD RING Inhaled Oxygen Concentration - - Weight 67.5 kg (148 lb 14.4 oz) 10/14/2024 7:00 AM ASSEMBLER DC FIELD RING Height 154.9 cm (5' 1) 10/13/2024 6:12 AM ASSEMBLER DC FIELD RING Body Mass Index 28.13 10/13/2024 6:12 AM ASSEMBLER DC FIELD RING Plan of Treatment Upcoming Encounters Date Type Department Care Team (Late st Contact Info) Description 04/05/2025 11:20 AM CDT Appointment [place] [facility] [address] [place] [address] Darin Madrid MD [address] [place] [phone] 04/05/2025 11:40 AM CDT Appointment [place] [facility] [address] [place] [address] Darin Madrid MD [address] [place] [address] 04/05/2025 1:00 PM CDT Appointment Al[facility] [place] [address] Vascular Surgery [address] [place] [phone] Darin Madrid MD [address] [place] [address] [phone] Health Maintenance Due Date Last Done Comments Medicare Annual Wellness Visit 1940 Zoster/Shingles Vaccine (1 of 2) 12/10/1989 Pneumococcal Vaccine 50+ Yrs (2 of 2 - PCV) 11/21/2013 11/21/2012, 11/21/2012, 01/28/2005, Additional history exists RSV Vaccine (1 - 1-dose 75+ series) 12/10/2014 DTaP/Tdap/Td Vaccine (1 - Tdap) 01/29/2018 01/28/2018, 11/13/2012 COVID-19 Vaccine ( - 2023- season) 2024 Influenza Vaccine (Season Ended) 2025 Dexa 06/21/2026 06/21/2024 HepA Vaccine Aged Out No longer eligi ble based on patient's age to complete this topic HepB Vaccine Aged Out No longer eligi ble based on patient's age to complete this topic Hib Vaccine Aged Out No longer eligi ble based on patient's age to complete this topic MCV4 Vaccine Aged Out No longer eligi ble based on patient's age to complete this topic Meningococcal B Vaccine Aged Out No l onger eligible based on patient's age to complete this topic Medical Devices Implanted Type Area Air Carrier Operations Inspector Device Identifier Shelf Expiration Date Model / Serial / Lot Transcarotid Stent System Implanted:Qty: 1 on 10/13/2024 by Darin Madrid MD at [facility] Right: [facility] 06/15/2026 [id number] / / [id number] Procedures Procedure Name Priority Date/Time Associated Diagnosis Comments US/VL CAROTID BILAT Routine 12/28/2024 1 1:15 AM CDT Bilateral carotid artery stenosis DXA BONE DENSITY SPINE/HIP INC VERT FX ASSESS Routine 06/21/2024 11:23 AM ASSEMBLER DC FIELD RING Post-menopausal History of hip fracture from Last 3 Months or Most Recently Relevant to Health Maintenance Results * US/VL Carotid Bilat (12/28/2024 11:15 [...] artery (PSV 92cm/s). us Darin Madrid MD [facility] US Final Resul t * DXA Bone Density Spine/Hip Inc Vert FX Assess (06/21/2024 11:23 AM ASSEMBLER DC FIELD RING) [facility] DXA Lumbar Spine Bone Mineral Density 1.142 gm/cm2 EXTERNAL RESULTS DXA Lumbar Spine T-Score 0.9 EXTERNAL RESULTS DXA Lumbar Spine Z-Score 3.7 EXTERNAL RESULTS DXA Hip Right Bone Mineral Density 0.758 gm/cm2 EXTERNAL RESULTS DXA Hip Right T-Score -1.5 EXTERNAL RESULTS DXA Hip Right Z-Score 0.8 EXTERNAL RESULTS DXA Femur Right Bone Mineral Density 0.619 gm/cm2 EXTERNAL RESULTS DXA Femur Right T-Score -2.1 EXTERNAL RESULTS DXA Femur Right Z-Score 0.4 EXTERNAL RESULTS Anatomical Region Laterality Modality Spine, Hip Radiographic Rose ging Narrative 06/21/2024 11:42 AM ASSEMBLER DC FIELD RING Table formatting from the original result was not included. Patient Name: Agueda Williamson Densitometer: [employer] HOR[employer]ON W Appt Dept/Resource: [facility] Demographics Age: 83 y.o. Gender: Female Height: 5' 1.75 (1.568 m) Height at age 24: 5.3 Weight: 154 lb 1.6 oz (69.9 kg) Race: Medical/Surgical History Menstrual periods: None Age of menopause: 34 Able to stand from a chair easily without use of the arms?: Yes, easily How many falls indoors/outdoors within the last 12 months?: 1 History of fractures in parents: No History of previous fractures?: Yes Location: Hip Hip replacement?: Yes - Left Oral cortisone or steroid medication for more than 3 months?: No Currently or have taken medications to treat osteoporosis?: No Taking any aromatase inhibitor medication for breast cancer - anti-estrogen excluding tamoxifen?: No Have had the following medical conditions: Menopause prior to age 44 Dietary/Habit Alcohol 3 units or more per day on average?: No Currently smoking tobacco? No Daily servings of calcium rich food: 1 Do you take a daily calcium supplement?: No Dual-X-ray Absorptiometry (DXA) Results Skeletal Site BMD (gm/cm2) T-Score Z-Score % Change from Previous Scan dated: N/A Spine (L1, L2, L3, L4) 1.142 0.9 3.7 N/A Left Hip (Total) N/A N/A N/A N/A Left Hip (Femoral neck) N/A N/A N/A N/A Right Hip (Total) 0.758 -1.5 0.8 N/A Right Hip (Femoral neck) 0.619 -2.1 0.4 N/A Forearm (1/3) (Not Scanned) N/A N/A N/A N/A *N/A indicates that measurements were either not needed or not valid TBS: Trabecular Bone Score (TBS): 1.128 FRAX Score: 10 Year Risk Hip Fracture: 6.6% 10 Year Risk Major Osteoporotic Fracture: 24.2% VERTEBRAL FRACTURE ASSESSMENT: No vertebral fractures are present in evaluable vertebrae Comments: *This is a baseline study at this center (no comparison) Diagnosis: *Low bone mass (osteopenia) of right hip. Patient has a high risk of fracture Recommendations:. *Recommend lifestyle modifications as needed, including proper Calcium/Vitamin D intake, weight bearing exercises, and fall prevention. *Consider evaluation of secondary causes of bone loss if not previously performed. In the setting of FRAX score > 20%, as in this case, one can consider pharmacotherapy for low bone mass to reduce fracture risk. Clinical correlation needed. *Consider follow up DXA in 2 years, unless clinical circumstances change. Changes of spine and total hip bone density >= 0.03 g/cm2 are beyond densitometer precision error and generally are considered significant when the current and prior studies were done on the same densitometer. FRAX Explanation: The 10 year risks of hip and major osteoporotic fractures (clinical spine, forearm, hip or shoulder fracture) are calculated by the FRAX algorithm based on femoral neck bone density, age, gender, race/ethnicity, weight, height, previous fracture, parental hip fracture, smoking status, glucocorticoid intake, history of RA, secondary osteoporosis, and high alcohol consumption. FRAX fracture risk estimates are adjusted for Trabecular Bone Score (TBS) when available. Trabecular Bone Score (TBS) is a measure of the microarchitectural integrity of trabecular bone, and is derived from the [id number] changes of bone density embedded in the AP spine BMD image. TBS is only modestly correlated with BMD, and is modestly associated with incident major osteoporotic and hip fractures independent of BMD and other risk factors. FRAX Fracture Risk Categories in terms of major osteoporotic fractures: < 10% = low fracture risk >= 10% and <15% = mildly increased fracture risk >= 15% and <20% = moderately increased fracture risk >= 20% and <30% = high fracture risk >= 30% = very high fracture risk National Osteoporosis Foundation Treatment Guideline A clinician may consider FDA-approved medical therapies in postmenopausal women and men aged 50 years and older, if one or more of the following is present (clinical correlation required and therapy may not always be indicated): The patient has a hip or vertebral fracture. T-score <= -2.5 at the femoral neck, hip, or spine after appropriate evaluation to exclude secondary causes. Low bone mass (T-score between -1.0 and -2.5 at the femoral neck, hip or spine) and a 10-year probability of a hip fracture >= 3% or a 10-year probability of a major osteoporosis-related fracture >= 20% based on the FRAX scores. us Luke W Desilet DO RAD DEXA Final Result from Last 3 Months or Most Recently Relevant to Health Maintenance Insurance MEDICARE MANAGED CARE [employer] MEDICARE MANAGED CARE [employer] Advance Directives * Full Code (Latest Code Status on File) Date Activated Date Inactivated Comments 10/13/2024 12:24 PM 10/14/2024 5:08 PM Care Teams Engraver Block Relationship Specialty Start Date End Date Clinician, Not Found, [place] [address] PCP - General 10/13/24
--- OUTSIDE RECORDS SUMMARY | 2025-01-29 15:35 | XMS_ITS | Encounter Summary ---
Author Organization [facility] Address [address] [place] [address] Care Team Providers Care Website Designer Name Role Phone Elsewhere, Pcp Primary Care Provider Unavailabl e Reason for Referral * MRI/CAT/PET Scan (Routine) - Authorized Specialty Diagnoses / Procedures Referred By Contac t Referred To Contact Radiology Diagnoses Pain Hip Left Trochanteric Bursitis Left Hip Procedures MR Hip Left without IV Contrast Winter Wasserman P.A.-C., P.A., M.S. [address] [place] [phone] Phone: tel: fax: [facility] Region Referral ID Status Reason Start Date Expiration Date V isits Requested Visits Authorized [id number] Authorized 01/29/2025 05/01/2026 1 1 Encounter Details Date Type Department Care Team (Late st Contact Info) Description 01/29/2025 Orders Only Department of Orthopedic Surgery in [place], [place] [address] [place] [phone] Winter Wasserman P.A.-C., P.A., M.S. 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 [address] [place] [phone] Discharge Disposition: Home or Self Care 02/21/2025 10:15 AM CDT Comprehensive Visit Department of Physical Medicine and Rehabilitation in [place], [place] [address] [place] [phone] Winter Wasserman P.A.-C., P.A., M.S. [address] [place] [phone] Armida Rangel, P.TLucila [address] [place] [phone] Scheduled Orders Name Type Priority Associated Diagnoses Orde r Schedule MR Hip Left without IV Contrast Imaging RAD - Routine (most inpatients and all outpatients) Pain Hip Left Trochanteric Bursitis Left Hip Expected: 01/29/2025, Expires: 05/01/2026 documented as of this encounter Visit Diagnoses Diagnosis Pain Hip Left- Primary Trochanteric Bursitis Left Hip documented in this encounter Additional Health Concerns Assessment Noted Time PHQ-9 Depression Total Score: 8 11/09/19 25 1:53 PM CDT documented as of this encounter Care Teams Website Designer Relationship Specialty Start Date End Date Elsewhere, Pcp PCP - General Family Medicine 12/21/20 documented as of this encounter
--- OUTSIDE RECORDS SUMMARY | 2025-01-29 15:35 | XMS_ITS | Encounter Summary ---
Author Organization [facility] Address [address], [place] [address] Care Team Providers Care Traffic Controller Cable Name Role Phone Clinician, Not Found MD Primary Care Provider Un available Encounter Details Date Type Department Care Team (Late st Contact Info) Description 12/29/2024 Results [facility] [address] [place] [address]. [place] [address] Grover Singh Social History Tobacco Use Types Packs/Day Years [...] Info) Description 04/05/2025 11:20 AM CD[place] Scan [address] [place] [address] Darin Madrid MD [address] [place] [address] 04/05/2025 11:40 AM CDT [place] [facility] [address] [place] [address] Darin Madrid MD [facility] [place] [address] 04/05/2025 1:00 PM CDT Appointment [facility] [address] Vascular Surgery [address] [place] [phone] Darin Madrid MD [address] [place] [address] documented as of this encounter Visit Diagnoses Not on filedocumented in this encounter Care Teams Traffic Controller Cable Relationship Specialty Start Date End Date Clinician, Not Found, [place] [address] PCP - General 10/13/24 documented as of this encounter
--- OUTSIDE RECORDS SUMMARY | 2025-01-29 15:35 | XMS_ITS | Encounter Summary ---
Author Organization [facility] Address [address], [place] [address] Care Team Providers Care Corrective Therapy Aide Name Role Phone Clinician, Not Found MD Primary Care Provider Un available Encounter Details Date Type Department Care Team (Late st Contact Info) Description 10/16/2024 Results [facility] [address] [place] [address]. [place], [place] [address] Sabina Clayton RN Social History Tobacco Use Types Packs/Day Years [...] Info) Description 04/05/2025 11:20 AM CDT Appoint[place] Scan [address] [place] [address] Darin Madrid MD [address] [place] [address] 04/05/2025 11:40 AM CDT [place] [facility] [address] [place] [address] [place] [address] [place] [address] 04/05/2025 1:00 PM CDT Appointment [facility] [address] Vascular Surgery [address] [place] [phone] Darin Madrid MD [address] [place], [place] [address] documented as of this encounter Visit Diagnoses Not on filedocumented in this encounter Care Teams Corrective Therapy Aide Relationship Specialty Start Date End Date Clinician, Not Found, [place] [address] PCP - General 10/13/24 documented as of this encounter
--- OUTSIDE RECORDS SUMMARY | 2025-01-29 15:35 | XMS_ITS | Encounter Summary ---
Author Organization [facility] Address [address] [place] [address] Care Team Providers Care Pleating Machine Operator Name Role Phone Elsewhere, Pcp Primary Care Provider Unavailabl e Reason for Visit * Reason Onset Date Comments Cardiac Rehab 12/22/2024 Dropping CR Encounter Details Date Type Department Care Team (Latest Contact Info) Description 12/22/2024 Clinical Communication Department of Cardiac Rehabilitation in [place], [place] [address] [place] [phone] Rosey Gastelum R.N. 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 - 12/22/2024 10:30 AM CDT Neeru called in and stated that she was stopping CR. She is planning on going to the fitness center to [employer]. Electronically signed by: Rosey Gastelum R.N. 12/22/24 10:36 AM CDT documented in this encounter Plan of Treatment Upcoming Encounters Date Type Department Care Team (Latest Contact Info) Description 02/20/2025 5:00 PM CDT Appointment Department of Radiology, [facility], in [place], [place] [address] [place] [phone] Winter Wasserman P.A.-C., P.A., M.S. [address] [place] [phone] Discharge Disposition: Home or Self Care 02/21/2025 10:15 AM CDT Comprehensive Visit Department of Physical Medicine and Rehabilitation in [place], [place] [address] [place] [address] Winter Wasserman P.A.-C., P.A., M.S. [address] [place] [phone] Armida Rangel P.TLucila [address] [place] [phone] documented as of this encounter Visit Diagnoses Not on filedocumented in this encounter Additional Health Concerns Assessment Noted Time PHQ-9 Depression Total Score: 8 11/09/19 25 1:53 PM CDT documented as of this encounter Care Teams Pleating Machine Operator Relationship Specialty Start Date End Date Elsewhere, Pcp PCP - General Family Medicine 12/21/20 documented as of this encounter
--- OUTSIDE RECORDS SUMMARY | 2025-01-29 15:35 | XMS_ITS | Clinical Summary ---
Author Organization [facility] Address [address] [place] [address] Care Team Providers Care Bark Press Operator Name Role Phone Elsewhere, Pcp Primary Care Provider Unavailabl e Source Comments Patient records contain information from all sites at [facility]. For routine questions regarding patient records, call [phone] during business hours, M-F 8:00 AM - 5:00 PM Central Time. Record requests for emergency care only can be directed to [phone] at any time.[facility] Allergies No known active allergies Medications aspirin 81 mg chewable tablet Chew 81 mg daily. Active clopidogreL (Plavix) 75 mg tablet Take 75 mg by mouth daily. Active ezetimibe (Zetia) 10 mg tablet Take 10 mg by mouth daily. Active furosemide (Lasix) 40 mg tablet Take 40 mg by mouth daily. Active rosuvastatin (Crestor) 5 mg tablet Take 5 mg by mouth daily. Active spironolactone (Aldactone) 25 mg tablet Take 12.5 mg by mouth daily. Active co-enzyme Q-10 (Co Q-10) 100 mg capsule Take 100 mg by mouth daily. Active Active Problems No known active problems Encounters Date Type Department Care Team Description 01/29/2025 Orders Only Department of Orthopedic Surgery in [place], [place] [address] [place] [phone] Winter Wasserman P.A.-C., P.A., M.S. Pain Hip Left (Primary Dx); Trochanteric Bursitis Left Hip 01/25/2025 10:45 AM CDT Comprehensive Visit Department of Orthopedic Surgery in [place], [place] [address] [place] [phone] Winter Wasserman P.A.-C., P.Esteban, M.S. Pain Hip Left (Primary Dx); Trochanteric Bursitis Left Hip Discharge Disposition: Home or Self Care 01/25/2025 10:20 AM CDT - 01/25/2025 11:59 PM CDT Hospital Encounter Department of Radiology, [facility], in [address] [phone] Winter Wasserman P.A.-C., PGricel, M.S. Pain Hip Left Discharge Disposition: Home or Self Care 12/22/2024 Clinical Communication Department of Cardiac Rehabilitation in [address] [phone] Rosey Gastelum R.N. Cardiac Rehab (Dropping CR) 12/18/2024 1:54 PM CDT - 12/18/2024 11:59 PM CDT Hospital Encounter Department of Cardiac Rehabilitation in [address] [phone] Fady Denney M.D. Percutaneous Transarterial Coronary Angioplasty Status Post Discharge Disposition: Home or Self Care 12/13/2024 1:55 PM CDT - 12/13/2024 11:59 PM CDT Hospital Encounter Department of Cardiac Rehabilitation in [address] [phone] Fady Denney M.D. Percutaneous Transarterial Coronary Angioplasty Status Post Discharge Disposition: Home or Self Care 2024 1:56 PM CDT - 2024 11:59 PM CDT Hospital Encounter Department of Cardiac Rehabilitation in [address] [phone] Fady Denney M.D. Percutaneous Transarterial Coronary Angioplasty Status Post Discharge Disposition: Home or Self Care 12/08/2024 1:49 PM CDT - 12/08/2024 11:59 PM CDT Hospital Encounter Department of Cardiac Rehabilitation in [address] [phone] Fady Denney M.D. Percutaneous Transarterial Coronary Angioplasty Status Post Discharge Disposition: Home or Self Care 12/04/2024 1:52 PM CDT - 12/04/2024 11:59 PM CDT Hospital Encounter Department of Cardiac Rehabilitation in [address] [phone] Fady Denney M.D. Percutaneous Transarterial Coronary Angioplasty Status Post Discharge Disposition: Home or Self Care 12/01/2024 Plan of Care Documentation Department of Cardiac Rehabilitation in [address] [phone] 11/29/2024 1:20 PM CDT - 11/29/2024 11:59 PM CDT Hospital Encounter Department of Cardiac Rehabilitation in [address] [phone] Fady Denney M.D. Percutaneous Transarterial Coronary Angioplasty Status Post Discharge Disposition: Home or Self Care 11/27/2024 1:51 PM CDT - 11/27/2024 11:59 PM CDT Hospital Encounter Department of Cardiac Rehabilitation in [address] [phone] Fady Denney M.D. Percutaneous Transarterial Coronary Angioplasty Status Post Discharge Disposition: Home or Self Care 11/24/2024 1:50 PM CDT - 11/24/2024 11:59 PM CDT Hospital Encounter Department of Cardiac Rehabilitation in [address] [phone] Fady Denney M.D. Percutaneous Transarterial Coronary Angioplasty Status Post Discharge Disposition: Home or Self Care 11/22/2024 8:55 AM CDT - 11/22/2024 11:59 PM CDT Hospital Encounter Department of Cardiac Rehabilitation in [address] [phone] Fady Denney M.D. Percutaneous Transarterial Coronary Angioplasty Status Post Discharge Disposition: Home or Self Care 11/20/2024 8:50 AM CDT - 11/20/2024 11:59 PM CDT Hospital Encounter Department of Cardiac Rehabilitation in [address] [phone] Fady Denney M.D. Percutaneous Transarterial Coronary Angioplasty Status Post Discharge Disposition: Home or Self Care 11/17/2024 1:49 PM CDT - 11/17/2024 11:59 PM CDT Hospital Encounter Department of Cardiac Rehabilitation in [address] [phone] Fady Denney M.D. Percutaneous Transarterial Coronary Angioplasty Status Post Discharge Disposition: Home or Self Care 11/15/2024 1:39 PM CDT - 11/15/2024 11:59 PM CDT Hospital Encounter Department of Cardiac Rehabilitation in [address] [phone] Fady Denney M.D. Percutaneous Transarterial Coronary Angioplasty Status Post Discharge Disposition: Home or Self Care 11/13/2024 1:47 PM CDT - 11/13/2024 11:59 PM CDT Hospital Encounter Department of Cardiac Rehabilitation in [address] [phone] Fady Denney M.D. Percutaneous Transarterial Coronary Angioplasty Status Post Discharge Disposition: Home or Self Care 11/08/2024 1:41 PM CDT - 11/08/2024 11:59 PM CDT Hospital Encounter Department of Cardiac Rehabilitation in [address] [phone] Fady Denney M.D. Percutaneous Transarterial Coronary Angioplasty Status Post Discharge Disposition: Home or Self Care 11/06/2024 12:10 PM CDT - 11/06/2024 11:59 PM CDT Hospital Encounter Department of Cardiac Rehabilitation in [address] [phone] Fady Denney M.D. Percutaneous Transarterial Coronary Angioplasty Status Post Discharge Disposition: Home or Self Care 11/03/2024 12:19 PM CDT - 11/03/2024 11:59 PM CDT Hospital Encounter Department of Cardiac Rehabilitation in [address] [phone] Fady Denney M.D. Percutaneous Transarterial Coronary Angioplasty Status Post Discharge Disposition: Home or Self Care 11/02/2024 8:58 AM CDT - 11/02/2024 11:59 PM CDT Hospital Encounter Department of Cardiac Rehabilitation in [address] [phone] Fady Denney M.D. Percutaneous Transarterial Coronary Angioplasty Status Post (Primary Dx) Discharge Disposition: Home or Self Care 11/02/2024 Plan of Care Documentation Department of Cardiac Rehabilitation in [address] [phone] 11/01/2024 Clinical Communication Department of Cardiac Rehabilitation in [address] [phone] Fady Denney M.D. 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 Gender Identity Not on file Sexual Orientation Not on file Last Filed Vital Signs Vital Sign Reading Time Taken Comments Blood Pressure 121/71 12/21/2020 8:30 AM CDT Pulse 85 01/25/2025 10:53 AM CDT Temperature 36.5 C (97.7 F) 01/25/2025 10:53 AM CDT Respiratory Rate 18 12/21/2020 8:30 AM CDT Oxygen Saturation 95% 01/25/2025 10:53 AM CDT Inhaled Oxygen Concentration - - Weight 72.4 kg (159 lb 9.8 oz) 12/21/2020 4:26 A M CDT Height - - Body Mass Index - - Plan of Treatment Upcoming Encounters Date Type Department Care Team (Latest Contact Info) Description 02/20/2025 5:00 PM CDT Appointment Department of Radiology, [facility], in [place], [place] [address] [place] [address] Winter Wasserman P.A.-C., P.A., M.S. [address] [place] [phone] Discharge Disposition: Home or Self Care 02/21/2025 10:15 AM CDT Comprehensive Visit Department of Physical Medicine and Rehabilitation in [place], [place] [address] [facility] [phone] Winter Wasserman P.A.-C., P.A., M.S. [address] [place] [phone] Armida Rangel, P.T. [address] [place] [phone] Health Maintenance Due Date Last Done Comments Zoster Vaccines (1 of 2) 12/10/1989 Pneumococcal vaccine (50+ years) (2 of 2 - PCV) 11/21/2013 11/21/2012, 11/21/2012, 01/28/2005, Additional history exists RSV vaccine - (32-36 weeks) or 60+ years (1 - 1-dose 75+ series) 12/10/2014 DTaP,Tdap,and Td Vaccines (1 - Tdap) 01/29/2018 01/28/2018, 11/13/2012 COVID-19 Vaccine ( season) 2024 Influenza Vaccine (#1) 2024 Depression Screening (Annual PHQ-2) 08/16/2024 Fall Risk Screen (Annual) Completed 11/02/2024 IPV Vaccines Aged Out No longer eligi ble based on patient's age to complete this topic Medical Devices Implanted Type Area Returned Goods Inspector Device Identifier Shelf Expiration Date Model / Serial / Lot Hip Implant Hip Implant Left: Hip Knee Implant Knee Implant Left: Knee Procedures Procedure Name Priority Date/Time Associated Diagnosis Comments DX HIP AND PELVIS LEFT 2-3 VIEWS RAD - Routine (most inpatients and all outpatients) 01/25/2025 10:50 AM CDT Pain Hip Left 6 MINUTE WALK Routine 11/02/2024 12:30 PM CDT Percutaneous Transarterial Coronary Angioplasty Status Post from Last 3 Months Results * DX Hip And Pelvis Left [...] M.S. IMG DIAGNOSTIC IMAGING PROCEDURES Final Result * 6 MINUTE WALK (11/02/2024 12:30 PM CDT) Narrative Charlene Ortega R.N. - 11/02/2024 12:30 PM CDT Charlene Ortega R.N. 11/02/2024 10:17 AM Six Minute Walk Performed by: Charlene Ortega R.N. Authorized by: Fady Denney M.D. Were medications taken in the last 24 hours?: yes PRE WALK Assistive Device: 4 Wheel Walker 6 Min Walk Distance Type: Hallway Height (cm): 157 Weight (kg): 137 BMI: 55.6 Resting Heart Rate: 93 Heart Rate Source: Pulse Oximeter Resp Rate: Resting SpO2: 91 SpO2 Site: Finger Resting BP: 107 67 BP Cuff Size: RegularSupplemental Oxygen used: Supplemental Oxygen Not Used Angina Scale: 0 - No Angina Claudication Scale: 1 - No Claudication Pain Edvin Dyspnea: 0 - Nothing at all Edvin Fatigue: 0 - Nothing at all Edvin Rating of Perceived Exertion (RPE): 6 - No exertion at all POST WALK Heart Rate: 119 Heart Rate Source: Pulse Oximeter SpO2: 91 BP: 88 57 BP Cuff Side: Right Angina Scale: 0 - No Angina Claudication Scale: 1 - No Claudication Pain Edvin Dyspnea: 0.5 - Very, Very Slight Edvin Fatigue: 3 - Moderate Edvin Rating of Perceived Exertion: 13 - Somewhat Hard Time of Test: 12:45 CDT Total Distance Walked (Feet): 337 Total Distance Walked (Meters): 102.72 Total # of Times Stopped: 1 Time Stopped (Seconds): 64 Time Walked (Seconds): 296 1 MINUTE POST WALK Resting Heart Rate: 98 Heart Rate Source: Pulse Oximeter Resting SpO2: 94 Resting BP: 117 71 BP Cuff Side: Right Edvin Dyspnea: 0 -Nothing at all Edvin Rating of Perceived Exertion: 6 - No exertion at all CALCULATIONS Estimated MPH: 0.8 Estimated METs: 1.61 % of Predicted Distance: 56.96 Fady Denney M.D. CV STRESS PROCEDURES Christie l Result from Last 3 Months Insurance MEDICA MEDICARE Care Teams Bark Press Operator Relationship Specialty Start Date End Date Elsewhere, Pcp PCP - General Family Medicine 12/21/20
[2025-01-29 15:44] VITALS: BP 101/59; PULSE 99; RESP 20; TEMP 36.9; O2SAT 95; BMI 25.2
== END 2025-01-29 17:34 | disposition left against medical advice (07) ==
LOC: ED 17:31
PROVIDERS: Emergency Provider Emergency Medicine Emergency Medical Services
DX: Z53.21 Procedure and treatment not carried out due to patient leaving prior to being seen by health care provider (principal)

== ENCOUNTER 2025-02-13 12:53 | Outpatient (CLI) | payer MEDICARE, OTHER, SELFPAY ==
--- OUTSIDE RECORDS SUMMARY | 2025-01-25 10:20 | XMS_ITS | Encounter Summary ---
Author Organization [facility] Address [address] [place] [address] Care Team Providers Care Dynamics Ax Consultant Name Role Phone Elsewhere, Pcp Primary Care Provider Unavailabl e Reason for Visit * Outpatient (Routine) - Closed Specialty Diagnoses / Procedures Referred By Contac t Referred To Contact Diagnoses Pain Hip Left Procedures DX Hip And Pelvis Left 2-3 Views DX Hip Left 2-3 Views Winter Wasserman P.A.-C., P.A., M.S. [address] [place] [phone] Phone: tel: fax: [facility] Region Referral ID Status Reason Start Date Expiration Date Visits Re quested Visits Authorized [id number] Closed 01/24/2025 04/26/2026 1 1 Encounter Details Date Type Department Care Team (Latest Contact Info) Description 01/25/2025 10:20 AM CDT - 01/25/2025 11:59 PM CDT Hospital Encounter Department of Radiology, [facility], in [place], [place] [address] [place] [phone] Winter Wasserman P.A.-C., P.A., M.S. 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 [address] [place] [phone] Discharge Disposition: Home or Self Care 02/21/2025 10:15 AM CDT Comprehensive Visit Department of Physical Medicine and Rehabilitation in [place], [place] [address] [place] [phone] Winter Wasserman P.A.-C., P.A., M.S. [address] [place] [phone] Armida Rangel P.T. [address] [place] [phone] documented as of this encounter Procedures Procedure Name Priority Date/Time Associated Diagnosis Comments DX HIP AND PELVIS LEFT 2-3 VIEWS RAD - Routine (most inpatients and all outpatients) 01/25/2025 10:50 AM CDT Pain Hip Left documented in this encounter Results * DX Hip And Pelvis Left 2-3 Views (01/25/2025 10:50 AM CDT) Anatomical Region Laterality Modality Lower Extremity, Pelvis, Hip , Musculoskeletal RST LOS, Musculoskeletal ARZ LOS, Muskuloskeletal FLA LOS Left Digit al Radiography Impressions 01/25/2025 11:08 AM CDT No prior imaging available for comparison. Left total hip arthroplasty. Hardware appears well seated. No evidence of periprosthetic fracture. 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 Remainder unremarkable Narrative 01/25/2025 11:08 AM CDT EXAM: DX HIP AND PELVIS LEFT 2-3 VIEWS Procedure Note Ignacio Rojo M.D. - 01/25/2025 EXAM: DX HIP AND PELVIS LEFT 2-3 VIEWS IMPRESSION: No prior imaging available for comparison. Left total hip arthroplasty.Hardware appears well seated. No evidence of periprosthetic fracture.Arthritic changes in the lumbosacral spine. Remainder unremarkable Winter Wasserman P.A.-C., P.A., M.S. IMG DIAGNOSTIC IMAGING PROCEDURES Final Result documented in this encounter Visit Diagnoses Diagnosis Pain Hip Left documented in this encounter Additional Health Concerns Assessment Noted Time PHQ-9 Depression Total Score: 8 11/09/19 25 1:53 PM CDT documented as of this encounter Care Teams Dynamics Ax Consultant Relationship Specialty Start Date End Date Elsewhere, Pcp PCP - General Family Medicine 12/21/20 documented as of this encounter
--- OUTSIDE RECORDS SUMMARY | 2025-01-25 10:20 | XMS_ITS | Encounter Summary ---
Author Organization [facility] Address [address] [place] [address] Care Team Providers Care Plugger Man Name Role Phone Elsewhere, Pcp Primary Care Provider Unavailabl e Reason for Visit * Outpatient (Routine) - Closed Specialty Diagnoses / Procedures Referred By Contac t Referred To Contact Diagnoses Pain Hip Left Procedures DX Hip And Pelvis Left 2-3 Views DX Hip Left 2-3 Views Winter Wasserman P.A.-C., P.A., M.S. [address] [place] [phone] Phone: tel: fax: [facility] Region Referral ID Status Reason Start Date Expiration Date Visits Re quested Visits Authorized [id number] Closed 01/24/2025 04/26/2026 1 1 Encounter Details Date Type Department Care Team (Latest Contact Info) Description 01/25/2025 10:20 AM CDT - 01/25/2025 11:59 PM CDT Hospital Encounter Department of Radiology, [facility], in [place], [place] [address] [place] [phone] Winter Wasserman P.A.-C., P.A., M.S. 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 [address] [place] [phone] Discharge Disposition: Home or Self Care 02/21/2025 10:15 AM CDT Comprehensive Visit Department of Physical Medicine and Rehabilitation in [place], [place] [address] [place] [phone] Winter Wasserman P.A.-C., P.A., M.S. [address] [place] [phone] Armida Rangel P.T. [address] [place] [phone] documented as of this encounter Procedures Procedure [...] documented as of this encounter Care Teams Plugger Man Relationship Specialty Start Date End Date Elsewhere, Pcp PCP - General Family Medicine 12/21/20 documented as of this encounter
--- OUTSIDE RECORDS SUMMARY | 2025-01-25 10:45 | XMS_ITS | Encounter Summary ---
Author Organization [facility] Address [address] [place] [address] Care Team Providers Care Rotor Blade Installer Name Role Phone Elsewhere, Pcp Primary Care Provider Unavailabl e Reason for Referral * Physical Therapy (Routine) - Authorized Specialty Diagnoses / Procedures Referred By Contac t Referred To Contact Diagnoses Pain Hip Left Trochanteric Bursitis Left Hip Procedures PT Evaluate and treat Winter Wasserman P.A.-C., P.A., M.S. [address] [place] [phone] Phone: tel: fax: [facility] Region Referral ID Status Reason Start Date Expiration Date V isits Requested Visits Authorized [id number] Authorized 01/25/2025 04/27/2026 99 99 Reason for Visit * Reason Comments Pain * Appointment Request (Routine) - Closed Specialty Diagnoses / Procedures Referred By Contac t Referred To Contact Orthopedic Surgery Diagnoses Pain Hip Left Referral ID Status Reason Start Date Expiration Date Visits Re quested Visits Authorized [id number] Closed 01/24/2025 04/26/2026 1 1 Encounter Details Date Type Department Care Team (Latest Contact Info) Description 01/25/2025 10:45 AM CDT Comprehensive Visit Department of Orthopedic Surgery in [address] [phone] Winter Wasserman P.A.-C., P.A., M.S. 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 - 01/25/2025 10:45 AM CDT Voltaren Gel: (Diclofenac) This is an over the counter topical anti-inflammatory cream (topical NSAID). You can use this up to4 times a day. There is a dosing card in the box to help direct how much to apply depending on which joint. Lower extremity (eg, knee/hip): Topical: Gel 1% (OTC or Rx): Apply 4 g to each affected area up to 4 times daily; maximum dose per joint: 16 g/day; maximum total body dose (all combined joints): 32 g/day. documented in this encounter Consult Notes * Winter Wasserman P.A.-C., P.Rose., M.S. - 01/25/2025 10:45 AM CDT [facility] Orthopedic Surgery New Patient Clinic Note Name: Rebeka Williamson : 1940 Sex: female Date: 01/25/2025 Rebeka Williamson is a 84 y.o. female who was referred by No ref. provider found for consultation ofLeft hip pain. CHIEF COMPLAINT: Left hip pain HISTORY OR PRESENT ILLNESS:Neeru is an 84-year-old female who presents to the clinic with left hip pain. She is accompanied by Manuel. She has been dealing with this for roughly the last 2-3 weeks. She denies any known injury or fall. When she describes her pain is located she states her pain is located to the outside part of her hip and does travel down to her knee. She states no pain ever goes past her knee. She occasionally notices some discomfort to the groin. Of note she does have a historyof a left hemiarthroplasty done for fracture in 2012. This was done in [facility]. She did unfortunately sustained a PE at this time. She otherwise feels specifically to the hip she had recovered well up until recent pain. She denies having any pain sleeping on her left side. At baseline Neeru does use a walker for assistance while ambulating. She is taking Tylenol for pain control. Of note she did recently undergo right trans carotid arterial revascularization by Dr. Darin Madrid at [facility] on 10/13/24. She did have a new ultrasound completed on the left side which does show high-grade stenosis which will still need to be addressed. Likely surgery in May 2025. Neeru is currently on Plavix. PAST MEDICAL/SURGICAL/FAMILY/SOCIAL HISTORY: The medical history was reviewed today from the electronic medical record. Please see the electronic medical record for complete details of the PAST MEDICAL HISTORY, FAMILY HISTORY, and SOCIAL HISTORY. No past surgical history on file. MEDICATIONS: Current Outpatient Medications on File Prior to Visit Medication Sig Dispense Refill aspirin 81 mg chewable tablet Chew 81 [...] tablet Take 12.5 mg by mouth daily. No current facility-administered medications on file prior to visit. ALLERGIES: No Known Allergies PHYSICAL EXAM: General: Alert and orientated to person, place, and time. No signs of distress or discomfort. Speech is coherent and appropriate to conversation. Breathing is non-labored. Vitals: 01/25/25 1053 Pulse: 85 Temp: 36.5 ??C SpO2: 95% Pulses: 2+posterior tibialis pulse. Sensation: Intact sensation along the lateral and anterior femoral cutaneous, saphenous, peroneal, and deep peroneal distribution. Left Hip Exam: Exquisite tenderness to palpation over the greater trochanter. Tenderness to palpation just distally along the IT band. Nontender to palpation over the lateral aspect of the knee. No pain with passive hip flexion or extension. No pain with passive internal and external rotation of the hip. I did have her attempt to get up from her seat and walk which he did have a difficult time doing. She does rely heavily upon her right side due to pain. IMAGING: EXAM: DX HIP AND PELVIS LEFT 2-3 VIEWS IMPRESSION: No prior imaging available for comparison. Left total hip arthroplasty. Hardware appears well seated. No evidence of periprosthetic fracture. 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 Remainder unremarkable ASSESSMENT: Left hip pain, greater trochanteric bursitis, gluteal tendinopathy PLAN: I initially reviewed patient's x-rays she had completed today. The previous hemiarthroplasty is intact with no signs of loosening or sclerotic changes to the acetabulum. After obtaining patient's history and conducting her physical exam I do feel her symptoms are most consistent with left greater trochanteric bursitis I would likely gluteal tendinopathy. I discussed the anatomy and pathology of these findings today. At this time we do feel it is most appropriate we start with conservativemeasures. I have no concern for infection of the hip joint or feel any further imaging is necessary. Due to her being unable to take oral anti-inflammatories, I do recommend she attempts Voltaren gel4 times a day. I do feel physical therapy also would be very helpful for her. She will plan on getting this set up. If she fails to notice any improvements in her symptoms she is to let me know. We can consider we examining her in clinic or potentially considering an ultrasound-guided left greater t rochanteric bursa cortisone injection. She otherwise will plan on reaching out to me with any further questions or concerns. Neeru verbalizes understanding and agrees with the plan. If there are further questions or concerns to let us know. Beata Wasserman PA-C Orthopedic Surgery & Sports Medicine [facility] documented in this encounter Plan of Treatment Upcoming Encounters Date Type Department Care Team (Latest Contact Info) Description 02/20/2025 5:00 PM CDT Appointment Department of Radiology, [facility], in [place] [id number] [place] [phone] Winter Wasserman P.A.-C., P.Rose., M.S. [address] [place] [phone] Discharge Disposition: Home or Self Care 02/21/2025 10:15 AM CDT Comprehensive Visit Department of Physical Medicine and Rehabilitation in [place], [place] [address] [place] [phone] Winter Wasserman P.A.-C., P.A., M.S. [address] [place] [phone] Armida Rangel P.T. [address] [place] [phone] documented as of this encounter Visit Diagnoses Diagnosis Pain Hip Left- Primary Trochanteric Bursitis Left Hip documented in this encounter Additional Health Concerns Assessment Noted Time PHQ-9 Depression Total Score: 8 11/09/19 25 1:53 PM CDT documented as of this encounter Care Teams Rotor Blade Installer Relationship Specialty Start Date End Date Elsewhere, Pcp PCP - General Family Medicine 12/21/20 documented as of this encounter
--- OUTSIDE RECORDS SUMMARY | 2025-01-25 10:45 | XMS_ITS | Encounter Summary ---
Author Organization [facility] Address [address] [place] [address] Care Team Providers Care Offshoring Manager Name Role Phone Elsewhere, Pcp Primary Care Provider Unavailabl e Reason for Referral * Physical Therapy (Routine) - Authorized Specialty Diagnoses / Procedures Referred By Contac t Referred To Contact Diagnoses Pain Hip Left Trochanteric Bursitis Left Hip Procedures PT Evaluate and treat Winter Wasserman P.A.-C., P.A., M.S. [address] [place] [phone] Phone: tel: fax: [facility] Region Referral ID Status Reason Start Date Expiration Date V isits Requested Visits Authorized [id number] Authorized 01/25/2025 04/27/2026 99 99 Reason for Visit * Reason Comments Pain * Appointment Request (Routine) - Closed Specialty Diagnoses / Procedures Referred By Contac t Referred To Contact Orthopedic Surgery Diagnoses Pain Hip Left Referral ID Status Reason Start Date Expiration Date Visits Re quested Visits Authorized [id number] Closed 01/24/2025 04/26/2026 1 1 Encounter Details Date Type Department Care Team (Latest Contact Info) Description 01/25/2025 10:45 AM CDT Comprehensive Visit Department of Orthopedic Surgery in [address] [phone] Winter Wasserman P.A.-C., P.A., M.S. 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 - 01/25/2025 10:45 AM CDT [facility] Orthopedic Surgery New Patient Clinic Note Name: [...] fracture in 2012. This was done in [facility]. She did unfortunately sustained a PE at [...] arterial revascularization by Dr. Darin Madrid at [facility] on 10/13/24. She did have a [...] PA-C Orthopedic Surgery & Sports Medicine [facility] documented in this encounter Plan of Treatment Upcoming Encounters Date Type Department Care Team (Latest Contact Info) Description 02/20/2025 5:00 PM CDT Appointment Department of Radiology, [facility], in [place] [address] [place] [phone] Winter Wasserman P.A.-C., P.Rose., M.S. [address] [place] [phone] Discharge Disposition: Home or Self Care 02/21/2025 10:15 AM CDT Comprehensive Visit Department of Physical Medicine and Rehabilitation in [place], [place] [address] [place] [phone] Winter Wasserman P.A.-C., P.A., M.S. [address] [place] [phone] Armida Rangel P.T. [address] [place] [phone] documented as of this encounter Visit Diagnoses Diagnosis Pain Hip Left- Primary Trochanteric Bursitis Left Hip documented in this encounter Additional Health Concerns Assessment Noted Time PHQ-9 Depression Total Score: 8 11/09/19 25 1:53 PM CDT documented as of this encounter Care Teams Offshoring Manager Relationship Specialty Start Date End Date Elsewhere, Pcp PCP - General Family Medicine 12/21/20 documented as of this encounter
--- OUTSIDE RECORDS SUMMARY | 2025-02-13 15:46 | XMS_ITS | Encounter Summary ---
Author Organization [facility] Address [address] [place] [address] Care Team Providers Care Therapeutic Riding Instructor Name Role Phone Tonio Castillo MD Primary Care Provider Tonio Castillo MD Unavailable Tonio Castillo MD Unavailable Alexander Zepeda MD Unavailable [phone] Marcelo Espinal MD Unavailable [phone] Blayne Giraldo PA-C Unavailable [phone] Blayne Giraldo PA-C Unavailable [phone] Tonio Castillo MD Unavailable Encounter Details Date Type Department Care Team (Late st Contact Info) Description 05/20/2017 [facility] Respiratory Care [address] 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 Gender Identity Not on file Sexual Orientation Not on file documented as of this encounter Plan of Treatment Not on file documented as of this encounter Results * Hemoglobin (05/20/2017 1:40 PM CDT) Hemoglobin 11.8 11.7 - 15.7 g/dL 05/20/2017 2:27 PM CDT [facility] Blood specimen (specimen) 05/20/2017 1:40 PM CDT 05/20/2017 1:44 PM CDT us Tonio Castillo MD LAB - BLOOD ORDERABLES Final Res ult [facility] [address] [address], [facility] [phone] documented in this encounter Visit Diagnoses Diagnosis Dyspnea on exertion- Primary Other dyspnea and respiratory abnormality documented in this encounter Additional Health Concerns Infection Onset Date Last Indicated Resolved Time COVID-19 12/17/2020 12/17/2020 01/07/2021 11:4 0 PM CDT documented as of this encounter Care Teams Therapeutic Riding Instructor Relationship Specialty Start Date End Date Tonio Castillo MD [address] [place] [address] PCP - General Family Practice 10/12/16 Tonio Castillo MD [address] [place] [address] PCP - Assigned PCP 09/20/16 10/18/18 Tonio Castillo MD [address] [place] [address] Assigned PCP 09/20/16 07/31/22 [place] [address] [place] [address] Assigned Neuroscience Provider 06/07/20 12/13/21 Marcelo Espinal MD [facility] [address] [place] [address] Assigned Musculoskeletal Provider 06/07/20 02/01/21 Blayne Giraldo PA-C [address] [place] [address] [place] [address] Assigned Surgical Provider 10/30/20 Blayne Giraldo PA-C [address] [place] [address] Assigned Musculoskeletal Provider 02/02/21 11/01/21 [place] [address] [place] [address] Assigned PCP 10/10/22 03/05/23 documented as of this encounter
--- OUTSIDE RECORDS SUMMARY | 2025-02-13 15:46 | XMS_ITS | Clinical Summary ---
Author Organization [facility] Address [address] [place] [address] Care Team Providers Care Anglesmith Name Role Phone Elsewhere, Pcp Primary Care Provider Unavailabl e Source Comments Patient records contain information from all sites at [facility]. For routine questions regarding patient records, call [phone] during business hours, M-F 8:00 AM - 5:00 PM Central Time. Record requests for emergency care only can be directed to [phone] at any time.[facility] Allergies No known active allergies Medications aspirin [...] Orders Only Department of Orthopedic Surgery in [place], [place] [address] [place] [phone] Winter Wasserman P.A.-C., P.A., M.S. Pain Hip Left (Primary Dx); Trochanteric Bursitis Left Hip 01/25/2025 10:45 AM CDT Comprehensive Visit Department of Orthopedic Surgery in [place], [place] [address] [place] [phone] Winter Wasserman P.A.-C., P.Esteban, M.S. Pain Hip Left (Primary Dx); Trochanteric Bursitis Left Hip Discharge Disposition: Home or Self Care 01/25/2025 10:20 AM CDT - 01/25/2025 11:59 PM CDT Hospital Encounter Department of Radiology, [facility], in [address] [phone] Winter Wasserman P.A.-C., PGricel, M.S. Pain Hip Left Discharge Disposition: Home or Self Care 12/22/2024 Clinical Communication Department of Cardiac Rehabilitation in [address] [phone] Rosey Gastelum R.N. Cardiac Rehab (Dropping CR) 12/18/2024 1:54 PM CDT - 12/18/2024 11:59 PM CDT Hospital Encounter Department of Cardiac Rehabilitation in [address] [phone] Fady Denney M.D. Percutaneous Transarterial Coronary Angioplasty Status Post Discharge Disposition: Home or Self Care 12/13/2024 1:55 PM CDT - 12/13/2024 11:59 PM CDT Hospital Encounter Department of Cardiac Rehabilitation in [address] [phone] Fady Denney M.D. Percutaneous Transarterial Coronary Angioplasty Status Post Discharge Disposition: Home or Self Care 2024 1:56 PM CDT - 2024 11:59 PM CDT Hospital Encounter Department of Cardiac Rehabilitation in [address] [phone] Fady Denney M.D. Percutaneous Transarterial Coronary Angioplasty Status Post Discharge Disposition: Home or Self Care 12/08/2024 1:49 PM CDT - 12/08/2024 11:59 PM CDT Hospital Encounter Department of Cardiac Rehabilitation in [address] [phone] Fady Denney M.D. Percutaneous Transarterial Coronary Angioplasty Status Post Discharge Disposition: Home or Self Care 12/04/2024 1:52 PM CDT - 12/04/2024 11:59 PM CDT Hospital Encounter Department of Cardiac Rehabilitation in [address] [phone] Fady Denney M.D. Percutaneous Transarterial Coronary Angioplasty Status Post Discharge Disposition: Home or Self Care 12/01/2024 Plan of Care Documentation Department of Cardiac Rehabilitation in [address] [phone] 11/29/2024 1:20 PM CDT - 11/29/2024 11:59 PM CDT Hospital Encounter Department of Cardiac Rehabilitation in [address] [phone] Fady Denney M.D. Percutaneous Transarterial Coronary Angioplasty Status Post Discharge Disposition: Home or Self Care 11/27/2024 1:51 PM CDT - 11/27/2024 11:59 PM CDT Hospital Encounter Department of Cardiac Rehabilitation in [address] [phone] Fady Denney M.D. Percutaneous Transarterial Coronary Angioplasty Status Post Discharge Disposition: Home or Self Care 11/24/2024 1:50 PM CDT - 11/24/2024 11:59 PM CDT Hospital Encounter Department of Cardiac Rehabilitation in [address] [address] Fady Denney M.D. Percutaneous Transarterial Coronary Angioplasty Status Post Discharge Disposition: Home or Self Care 11/22/2024 8:55 AM CDT - 11/22/2024 11:59 PM CDT Hospital Encounter Department of Cardiac Rehabilitation in [address] [address] Fady Denney M.D. Percutaneous Transarterial Coronary Angioplasty Status Post Discharge Disposition: Home or Self Care 11/20/2024 8:50 AM CDT - 11/20/2024 11:59 PM CDT Hospital Encounter Department of Cardiac Rehabilitation in [address] [phone] Fady Denney M.D. Percutaneous Transarterial Coronary Angioplasty Status Post Discharge Disposition: Home or Self Care 11/17/2024 1:49 PM CDT - 11/17/2024 11:59 PM CDT Hospital Encounter Department of Cardiac Rehabilitation in [address] [address] Fady Denney M.D. Percutaneous Transarterial Coronary Angioplasty Status Post Discharge Disposition: Home or Self Care 11/15/2024 1:39 PM CDT - 11/15/2024 11:59 PM CDT Hospital Encounter Department of Cardiac Rehabilitation in [address] [address] Fady Denney M.D. 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 [address] [place] [phone] Discharge Disposition: Home or Self Care 02/21/2025 10:15 AM CDT Comprehensive Visit Department of Physical Medicine and Rehabilitation in [place], [place] [address] [place] [phone] Winter Wasserman P.A.-C., P.A., M.S. [address] [place] [phone] Armida Rangel P.TLucila [address] [place] [phone] Health Maintenance Due Date Last Done Comments Zoster Vaccines (1 of 2) 12/10/1989 Pneumococcal vaccine (50+ years) (2 of 2 - PCV) 11/21/2013 11/21/2012, 11/21/2012, 01/28/2005, Additional history exists RSV vaccine - (32-36 weeks) or 60+ years (1 - 1-dose 75+ series) 12/10/2014 DTaP,Tdap,and Td Vaccines (1 - Tdap) 01/29/2018 01/28/2018, 11/13/2012 COVID-19 Vaccine (1 - 2023- season) 2024 Depression Screening (Annual PHQ-2) 08/16/2024 Influenza Vaccine (#1) 2025 Fall Risk Screen (Annual) Completed 11/02/2024 IPV Vaccines Aged Out No longer eligi ble based on patient's age to complete this topic Medical Devices Implanted Type Area Work Manager Device Identifier Shelf Expiration Date Model / Serial / Lot Hip Implant Hip Implant Left: Hip Knee Implant Knee Implant Left: Knee Procedures Procedure Name Priority Date/Time Associated Diagnosis Comments DX HIP AND PELVIS LEFT 2-3 VIEWS RAD - Routine (most inpatients and all outpatients) 01/25/2025 10:50 AM CDT Pain Hip Left from Last 3 Months Results * DX [...] Remainder unremarkable Winter Wasserman P.A.-C., P.A., M.S. IM DIAGNOSTIC IMAGING PROCEDURES Final Result from Last 3 Months Insurance MEDICA MEDICARE Care Teams Anglesmith Relationship Specialty Start Date End Date Elsewhere, Pcp PCP - General Family Medicine 12/21/20
--- OUTSIDE RECORDS SUMMARY | 2025-02-13 15:46 | XMS_ITS | Encounter Summary ---
Author Organization [facility] Address [address] [place] [address] Care Team Providers Care Human Resource Officer Name Role Phone Elsewhere, Pcp Primary Care Provider Unavailabl e Reason for Referral * MRI/CAT/PET Scan (Routine) - Authorized Specialty Diagnoses / Procedures Referred By Contac t Referred To Contact Radiology Diagnoses Pain Hip Left Trochanteric Bursitis Left Hip Procedures MR Hip Left without IV Contrast Winter Wasserman P.A.-C., P.A., M.S. [address] [place] [phone] Phone: tel: fax: [facility] Region Referral ID Status Reason Start Date Expiration Date V isits Requested Visits Authorized [id number] Authorized 01/29/2025 05/01/2026 1 1 Encounter Details Date Type Department Care Team (Late st Contact Info) Description 01/29/2025 Orders Only Department of Orthopedic Surgery in [place], [place] [address] [place] [phone] Winter Wasserman P.A.-C., P.A., M.S. 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 [address] [place] [phone] Discharge Disposition: Home or Self Care 02/21/2025 10:15 AM CDT Comprehensive Visit Department of Physical Medicine and Rehabilitation in [place], [place] [address] [place] [phone] Winter Wasserman P.A.-C., P.A., M.S. [address] [place] [phone] Armida Rangel P.TLucila [address] [place] [phone] Scheduled Orders Name Type Priority Associated Diagnoses [...] documented as of this encounter Care Teams Human Resource Officer Relationship Specialty Start Date End Date Elsewhere, Pcp PCP - General Family Medicine 12/21/20 documented as of this encounter
--- OUTSIDE RECORDS SUMMARY | 2025-02-13 15:46 | XMS_ITS | Encounter Summary ---
Author Organization [facility] Address [address], [place] [address] Care Team Providers Care Business Representative Name Role Phone Clinician, Not Found MD Primary Care Provider Un available Encounter Details Date Type Department Care Team (Late st Contact Info) Description 12/29/2024 Results [facility] [address] [place] [address]. [place] [address] Grover Singh Social History Tobacco Use Types [...] Info) Description 04/05/2025 11:20 AM CDT [place]ointment [place] [address] [place] [address] Darin Madrid MD [address] [place] [address] 04/05/2025 11:40 AM CDT [place]ointment [place] [address] [place] [address] Darin Madrid MD [facility] [place] [address] 04/05/2025 1:00 PM CDT Appointment Alivia Chacon [address] Vascular Surgery [address] [place] [address] Darin Madrid MD [address] [place] [address] documented as of this encounter Visit Diagnoses Not on filedocumented in this encounter Care Teams Business Representative Relationship Specialty Start Date End Date Clinician, Not Found, [place] [address] PCP - General 10/13/24 documented as of this encounter
--- OUTSIDE RECORDS SUMMARY | 2025-02-13 15:46 | XMS_ITS | Encounter Summary ---
Author Organization [place] Address [address] [place] [address]. [place] [address] Care Team Providers Care Rand Sewer Name Role Phone Tonio Castillo MD Primary Care Provider [phone] Tonio Castillo MD Unavailable Tonio Castillo MD Unavailable Alexander Zepeda MD Unavailable [phone] Marcelo Espinal MD Unavailable [phone] Blayne Giraldo PA-C Unavailable [phone] Blayne Giraldo PA-C Unavailable [phone] Tonio Castillo MD Unavailable Reason for Visit * Reason Onset Date Comments Erroneous encounter-disregard 06/16/2018 Encounter Details Date Type Department Care Team (Late st Contact Info) Description 06/16/[address] [phone] Tonio Castillo MD [address] [place] [address] Erroneous encounter-disregard Social History Tobacco Use Types Packs/Day Years Used Date Smoking Tobacco: Never Smokeless Tobacco: Never Alcohol Use Standard Drinks/Week Comments Yes 0 (1 standard drink = 0.6 oz pur e alcohol) 1 glass every couple months Comments No Sex and Gender Information Value Date Recorded Sex Assigned at Not on file Legal Sex Female 4:11 AM PIGMENT AND LACQUER MIXER Gender Identity Not on file Sexual Orientation [...] documented as of this encounter Care Teams Rand Sewer Relationship Specialty Start Date End Date Tonio Castillo MD [address] [place] [address] [id number] PCP - General Family Practice 10/12/16 Tonio Castillo MD [address] [place] [address] [id number] PCP - Assigned PCP 09/20/16 10/18/18 Tonio Castillo MD [address] [place] [address] [phone] Assigned PCP 09/20/16 07/31/22 [place] [address] RODRIGUEZ [facility] GAYLE MARMOLEJO [id number] Assigned Neuroscience Provider 06/07/20 12/13/21 Marcelo Espinal MD [facility] [address] GAYLE HAYES [id number] Assigned Musculoskeletal Provider 06/07/20 02/01/21 Blayne Giraldo PA-C [address] [facility] GAYLE MELENDEZ [id number] Assigned Surgical Provider 10/30/20 Blayne Giraldo PA-C [address] [place] [address] Assigned Musculoskeletal Provider 02/02/21 11/01/21 [place] [address] [place] [address] Assigned PCP 10/10/22 03/05/23 documented as of this encounter
--- OUTSIDE RECORDS SUMMARY | 2025-02-13 15:46 | XMS_ITS | Clinical Summary ---
Author Organization [facility] [facility] Address [facility] [place] [address] Care Team Providers Care Tree Climber Name Role Phone Melani Woods MD Primary Care Prov ider Allergies No known active allergies Medications acetaminophen (TYLENOL) 325 mg tabletIndicatio ns:Intractable headache, unspecified chronicity pattern, unspecified headache type Take 2 Tablets (650 mg) by mouth every 4 hours if needed for Pain. Max acetaminophen dose: 4000mg in 24 hrs. 20 Tablet 11/23/19 24 Active multivitamin (MVI) tablet Take 1 Tablet by mouth once daily. 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 90 Tablet 3 07/07/2024 6:53 PM CANDLEMAKER 07/08/20 24 Active coenzyme q10 100 mg capIndications: Statin intolerance Take 1 Capsule (100 mg) by mouth once daily. 07/07/20 24 Active ezetimibe (ZETIA) 10 mg tabletIndicatio ns:Dyslipidemia Take 1 Tablet (10 mg) by mouth once daily. 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 Up to 3 tablets in 15 minutes. 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 90 Tablet 3 07/07/2024 6:53 PM CANDLEMAKER 07/07/20 24 Active furosemide 20 mg tabletIndicatio ns:Acute heart failure with preserved ejection fraction (HFpEF) (HC) Take 1 Tablet (20 mg) by mouth once daily in the morning. 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 To be used with physical therapist. 6 mL 02/10/20 25 025 Active Problems Problem Noted Date Diagnosed Date [...] Healthcare Facility 04/23/13: Support OP Encounter - [facility] [place] 02/20/13: Appointment - [facility] [place] 02/14/13: Appointment - [facility] [place] Recent notes: 10/02/24: Progress Notes - Interventional Cardiology Consult Note by Franko Malone MD ... [+] ? PE (pulmonary embolism) 08/07/24: Progress Notes by NELL Hancock ... [+] ? History of pulmonary embolism 06/19/2014 ... [+] ? PE (pulmonary embolism) 02/14/2013 07/18/24: Progress Notes by Juan J Bauer DO (from [facility]) ... [+] Other History: Severe bilateral internal [...] 0 10/15/2024 Coronary artery disease invo lving ute coronary artery of ute heart without angina pectoris 07/04/2024 Left main [...] Encounters Date Type Department Care Team Description 02/13/2025 2:00 PM CDT Office Visit [facility] at [address] [address] Jonathan Clark MD Procedure (Left L4-5 TFESI) 02/13/2025 Travel 02/08/2025 Telephone [facility] [address] [place] [address] Melani Woods MD Medication Management (order for Dexamethasone) 01/31/2025 2:40 PM CDT Office Visit [facility] [address] [place] [address] Melani Woods MD Hip Pain/problem (Left hip pain - started 01/14/25/Hip replacement in 2012/Knee replacement in 2019. ) 01/31/2025 Travel 12/20/2024 10:00 AM CDT Office Visit [facility] [address] [place] [address] [address] [place] [address] Rebeka Hatfield PA Follow Up (1 month followup / labs prior w/PMD. PT states feeling not bad. no cardiac symptoms today. nothing to note.) 12/20/2024 Travel 12/01/2024 10:15 AM CDT Office Visit [facility] [address] [place] [address] Melani Woods MD Post-op Pain/problem (unable to function - not able to walk or do daily activities/SOB - Mostly with activity, sometimes at rest. /) 12/01/2024 Travel 11/16/2024 11:00 AM CDT Office Visit [facility] [address] [facility] [address] [place] [address] Lor Holt, TANI Follow Up ([facility]/10/18 CT's, 10/16 echo, & 10/15 xray /Pt states feeling well today, thinks she cuts the furosemide in half and would like to stop taking spironolactone. ) 11/16/2024 Travel from Last 3 Months Immunizations Immunization [...] Brother (Age 64) [place] acc[place] vs [place] Father (Age 98) COPD Mother (Age 92) [...] on file Legal Sex Female 6:49 AM CANDLEMAKER Gender Identity Not on file Sexual Orientation [...] Sign Reading Time Taken Comments Blood Pressure 109/60 01/31/2025 2:34 PM CDT Pulse 83 01/31/2025 2:34 PM CDT Temperature 36.4 C (97.5 F) 10/19/2024 11:48 AM CANDLEMAKER Respiratory Rate 14 10/19/2024 11:4 8 AM CANDLEMAKER Oxygen Saturation 97% 01/31/2025 2:34 PM CDT Inhaled Oxygen Concentration - - Weight 64.8 kg (142 lb 14.4 oz) 12/20/2024 9:55 AM CDT Height 157.5 cm (5' 2) 12/20/2024 9:55 AM CDT Body Mass Index 26.14 12/20/2024 9:55 AM CDT Plan of Treatment Upcoming Encounters Date Type Department Care Team (Late st Contact Info) Description 03/22/2025 11:15 AM CDT Office Visit [facility] [address] [place] [address] [place] [address] [place] [address] Health Maintenance Due Date Last Done Comments Depression screening for age 12+ 1952 Zoster (shingles) series for age 50+ (1 of 2) 12/10/1989 DEXA/DXA scan for age 65+ 12/10/2004 Pneumococcal series for age 50+ (2 of 2 - PCV) 11/21/2013 11/21/2012, 11/21/2012, 01/28/2005, Additional history exists RSV vaccine for adults or (1 - 1-dose 75+ series) 12/10/2014 Medicare Wellness for age 65+ 01/23/2015 01/22/2014 COVID-19 vaccine series ( - 2023- season) 2024 Influenza Vaccine (#1) 2025 BMI (ht and wt on same day) for age 18+ 12/20/2025 12/20/2024, 11/16/2024, 10/02/2024, Additional history exists Tetanus booster 01/29/2028 01/28/2018, 11/13/2012 Hepatitis B series for 19+ Aged Out N o longer eligible based on patient's age to complete this topic Procedures Procedure Name Priority Date/Time Associated Diagnosis Comments AMB EPIDURAL STEROID INJECTION Routine 02/13/2025 6:55 AM CDT 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, initial encounter PRO-BNP Routine 12/01/2024 10:53 AM CDT Heart failure with preserved ejection fraction, unspecified HF chronicity (HC) BASIC METABOLIC PANEL Routine 12/01/2024 10:53 AM CDT Heart failure with preserved ejection fraction, unspecified HF chronicity (HC) from Last 3 Months Results * PRO-BNP (12/01/2024 10:53 AM CDT) Pathologist [facility] NT PROBNP 283 <450 pg/mL Next One's On Me (NOOM)Matt Ramos Blood BLOOD SPECIMEN / Unknown 12/01/2024 10:53 AM CDT 12/01/2024 10:55 AM CDT us Lor Debora Holt AIRWAYS CONTROL SPECIALIST SEND OUTS Final Resu lt Academic Management Services [facility] [address] [place] [address], [facility] [address] [place] [address] * (ABNORMAL) BASIC METABOLIC PANEL (12/01/2024 10:53 AM CDT) Pathologist [facility] GLUCOSE 103(H) 65 - 99 mg/dL [facility] Comment: Fasting reference interval For someone without known diabetes, a glucose value between 100 and 125 mg/dL is consistent with prediabetes and should be confirmed with a follow-up test. UREA NITROGEN (BUN) 8 7 - 25 mg/dL [facility] CREATININE 0.68 0.60 - 0.95 mg/dL [facility] EGFR 86 > OR = 60 mL/min/1. 73m2 [facility] BUN/CREATININE RATIO SEE NOTE: 6 [...] Richard CALCIUM 9.3 8.6 - 10.4 mg/dL [facility] frank[facility] Ramos Blood BLOOD SPECIMEN / Unknown 12/01/2024 10:53 AM CDT 12/01/2024 10:55 AM CDT Lor Holt AIRWAYS CONTROL SPECIALIST CHEMISTRY Final Resu lt Enable Injections [facility] [address] [place] [address], [facility] [address] [place] [address] from Last 3 Months Insurance MEDICARE PART A HB ONLY [employer] PB ONLY MEDICARE PART B HB ONLY [...] Code Status Discussion: Reviewed Preferences Care Teams Tree Climber Relationship Specialty Start Date End Date Melani Woods MD [place] [address] PCP - General Family Practice 06/12/24
--- OUTSIDE RECORDS SUMMARY | 2025-02-13 15:46 | XMS_ITS | Clinical Summary ---
Author Organization [place] Address [address] [place] [address]. [place] [address] Care Team Providers Care Platform Architect Name Role Phone Tonio Castillo MD Primary Care Provider [phone] Allergies No known active allergies Medications levothyroxine [...] (02/27/2020): Added automatically from request for surgery [id number] Lumbar radiculopathy 11/28/2019 020 Advanced directives, counseling/discussion [...] on file Legal Sex Female 4:11 AM ABE TEACHER Gender Identity Not on file Sexual Orientation [...] DIRECT LDL PANEL Routine 08/11/2017 10:55 AM ABE TEACHER Lipid screening from Last 3 Months or Most Recently Relevant to Health Maintenance Results * TSH (03/04/2020 2:44 PM CDT) TSH 2.08 0.40 - 4.00 mU/L 03/05/2020 10:[address] [facility] Blood specimen (specimen) 03/04/2020 2:44 PM CDT 03/04/2020 2:45 PM CDT us Tonio Castillo MD LAB - BLOOD ORDERABLES Final Res ult Performing Organization Address [facility] Co de Phone Number [facility] [address] [address] * (ABNORMAL) Lipid panel reflex to direct LDL Fasting (08/11/2017 10:55 AM ABE TEACHER) Cholesterol 291(H) <200 mg/dL 08/12/2017 9:[address] [facility] Comment:Desirable: <200 mg/d l Triglycerides 88 <150 mg/dL 08/12/2017 9:[address] [facility] Comment:Fasting specimen HDL Cholesterol 60 >49 mg/dL 9:19 AM [facility] LDL Cholesterol Calculated 213(H) <100 mg/dL 08/12/2017 9:[address] [facility] Comment: Above desirable: 100-129 mg/dl Borderline High: 130-159 mg/dL High: 160-189 mg/dL Very high: >189 mg/dl Non HDL Cholesterol 231(H) <130 mg/dL 08/12/2017 9:[address] [facility] Comment: Above Desirable: 130-159 mg/dl Borderline high: 160-189 mg/dl High: 190-219 mg/dl Very high: >219 mg/dl Blood specimen (specimen) 08/11/2017 10:55 AM ABE TEACHER 08/11/2017 11:00 AM ABE TEACHER us Sabina Escobar PA-C LAB - BLOOD ORDERABLES F inal Result Performing Organization Address [facility]/ZIP Co de Phone Number [facility] [address] [place] [address] from Last 3 Months or Most Recently Relevant to Health Maintenance Insurance MEDICA PRIME SOLUTION MEDICARE Advance Directives For more information, please contact: [phone] Documents on File Type Date Recorded Patient Electronic Calibration Technician Expl anation Advance Directives and Living Will 07/21/2019 1:53 PM Health Care Directiv e 06-15-19 Healthcare Agents on File Name Relationship Healthcare Agent [facility] Communication Manuel Williamson Spouse Health Care Agent Jimmy Williamson Son First Alternate Health Care Agent Care Teams Platform Architect Relationship Specialty Start Date End Date Tonio Castillo MD [address] [place] [id number] PCP - General Family Practice 10/12/16
--- OUTSIDE RECORDS SUMMARY | 2025-02-13 15:47 | XMS_ITS | Clinical Summary ---
Author Organization [facility] Address [address] [place] [address] Care Team Providers Care Biological Science Technician Name Role Phone Clinician, Not Found MD Primary Care Provider Un available Source Comments You are receiving this document as you are listed as the primary care provider,follow-up provider, or the patient has been referred to you for consultation.This is in compliance with the Medicare and[facility] Hospital[facility] EHR Incentive Program,which states Providers who transition their patient to another setting of careor provider of care or refers their patient to another provider of care shouldprovide summary care record for each transition of care or referral. [employer] Allergies No known active allergies Medications acetaminophen [...] [facility] Center [facility] [address] [place] [address] Grover Singh 12/28/2024 11:30 AM CDT Office Visit [facility] [address] Vascular Surgery [address] [place] [address] Darin Madrid MD Bilateral carotid artery stenosis (Primary Dx) 12/28/2024 11:00 AM CDT Ancillary Procedure [facility] [address] Vascular Lab [address] [place] [address] Darin Madrid MD Bilateral carotid artery stenosis [...] 36.7 C (98.1 F) 10/14/2024 11:39 AM LANDING GEAR MECHANIC Respiratory Rate 16 10/14/2024 11:3 9 AM LANDING GEAR MECHANIC Oxygen Saturation 98% 10/14/2024 11: 39 AM LANDING GEAR MECHANIC Inhaled Oxygen Concentration - - Weight 67.5 kg (148 lb 14.4 oz) 10/14/2024 7:00 AM LANDING GEAR MECHANIC Height 154.9 cm (5' 1) 10/13/2024 6:12 AM LANDING GEAR MECHANIC Body Mass Index 28.13 10/13/2024 6:12 AM LANDING GEAR MECHANIC Plan of Treatment Upcoming Encounters Date Type Department Care Team (Late st Contact Info) Description 04/05/2025 11:20 AM CDT [place] Scan [address] [place] [address] Darin Madrid MD [address] [place] [address] [id number] 04/05/2025 11:40 AM CDT [place] Scan [address] [place] [address] Darin Madrid MD [address] [place] [address] 04/05/2025 1:00 PM CDT Appointment Alivia Chi [place] [address] Vascular Surgery [address] [place] [phone] Darin Madrid MD [address] [place] [address] [id number] Health Maintenance Due Date Last Done Comments [...] this topic Medical Devices Implanted Type Area Chief Engineer Waterworks Device Identifier Shelf Expiration Date Model / Serial / Lot Transcarotid Stent System Implanted:Qty: 1 on 10/13/2024 by Darin Madrid MD at [facility] Right: [facility] 06/15/2026 [id number] / / [id number] Procedures Procedure Name Priority Date/Time Associated Diagnosis Comments US/VL CAROTID BILAT Routine 12/28/2024 1 1:15 AM CDT Bilateral carotid artery stenosis DXA BONE DENSITY SPINE/HIP INC VERT FX ASSESS Routine 06/21/2024 11:23 AM LANDING GEAR MECHANIC Post-menopausal History of hip fracture from Last [...] MD RAD VASCULAR US Final Resul t * DXA Bone Density Spine/Hip Inc Vert FX Assess (06/21/2024 11:23 AM LANDING GEAR MECHANIC) [facility] DXA Lumbar Spine Bone Mineral Density 1.142 [...] Radiographic Rose ging Narrative 06/21/2024 11:42 AM LANDING GEAR MECHANIC Table formatting from the original result was not included. Patient Name: Agueda Jasmina S Kjeer Densitometer: [employer] HORIZON W Appt Dept/Resource: [facility] Bone Density [...] trabecular bone, and is derived from the [id number]-ob-wralg changes of bone density embedded in the [...] Health Maintenance Insurance MEDICARE MANAGED CARE [employer]ICA [employer] MEDICARE MANAGED CARE [employer]ICA [employer] Advance Directives * Full Code (Latest Code Status on File) Date Activated Date Inactivated Comments 10/13/2024 12:24 PM 10/14/2024 5:08 PM Care Teams Biological Science Technician Relationship Specialty Start Date End Date Clinician, Not Found, [facility] [address] PCP - General 10/13/24
--- OUTSIDE RECORDS SUMMARY | 2025-02-14 00:20 | XMS_ITS | Clinical Summary ---
Author Organization [place] Address [address] [place] [address]. [place] [address] Care Team Providers Care Rpg Programmer Analyst Name Role Phone Tonio Castillo MD Primary Care Provider [phone] Allergies No known active allergies Medications levothyroxine [...] (02/27/2020): Added automatically from request for surgery [id number] Lumbar radiculopathy 11/28/2019 020 Advanced directives, counseling/discussion [...] on file Legal Sex Female 4:11 AM SAFETY COMPANION Gender Identity Not on file Sexual Orientation [...] DIRECT LDL PANEL Routine 08/11/2017 10:55 AM SAFETY COMPANION Lipid screening from Last 3 Months or Most Recently Relevant to Health Maintenance Results * TSH (03/04/2020 2:44 PM CDT) TSH 2.08 0.40 - 4.00 mU/L 03/05/2020 10:26 AM CDT [facility] Blood specimen (specimen) 03/04/2020 2:44 PM CDT 03/04/2020 2:45 PM CDT us Tonio Castillo MD LAB - BLOOD ORDERABLES Final Res ult Performing Organization Address [facility] Co de Phone Number [facility] [address] [address] * (ABNORMAL) Lipid panel reflex to direct LDL Fasting (08/11/2017 10:55 AM SAFETY COMPANION) Cholesterol 291(H) <200 mg/dL 08/12/2017 9:12 AM SAFETY COMPANION [facility] Comment:Desirable: <200 mg/d l Triglycerides 88 <150 mg/dL 08/12/2017 9:12 AM SAFETY COMPANION [facility] Comment:Fasting specimen HDL Cholesterol 60 >49 mg/dL 9:19 AM [facility] LDL Cholesterol Calculated 213(H) <100 mg/dL 08/12/2017 9:19 AM SAFETY COMPANION [facility] Comment: Above desirable: 100-129 mg/dl Borderline High: 130-159 mg/dL High: 160-189 mg/dL Very high: >189 mg/dl Non HDL Cholesterol 231(H) <130 mg/dL 08/12/2017 9:19 AM SAFETY COMPANION [facility] Comment: Above Desirable: 130-159 mg/dl Borderline high: 160-189 mg/dl High: 190-219 mg/dl Very high: >219 mg/dl Blood specimen (specimen) 08/11/2017 10:55 AM SAFETY COMPANION 08/11/2017 11:00 AM SAFETY COMPANION us Sabina Escobar PA-C LAB - BLOOD ORDERABLES F inal Result Performing Organization Address [facility]/ZIP Co de Phone Number [facility] [address] [place] [address] from Last 3 Months or Most Recently Relevant to Health Maintenance Insurance MEDICA PRIME SOLUTION MEDICARE Advance Directives For more information, please contact: [phone] Documents on File Type Date Recorded Patient Digital Associate Expl anation Advance Directives and Living Will 07/21/2019 1:53 PM Health Care Directiv e 06-15-19 Healthcare Agents on File Name Relationship Healthcare Agent [facility] Communication Manuel Williamson Spouse Health Care Agent Jimmy Williamson Son First Alternate Health Care Agent Care Teams Rpg Programmer Analyst Relationship Specialty Start Date End Date Tonio Castillo MD [address] [place] [address] PCP - General Family Practice 10/12/16
--- OUTSIDE RECORDS SUMMARY | 2025-02-14 00:21 | XMS_ITS | Encounter Summary ---
Author Organization [facility] Address [address] [place] [address] Care Team Providers Care Cork Pressing Machine Operator Name Role Phone Tonio Castillo MD Primary Care Provider [phone] Tonio Castillo MD Unavailable Tonio Castillo MD Unavailable Alexander Zepeda MD Unavailable [phone] Marcelo Espinal MD Unavailable Blayne Giraldo PA-C Unavailable [phone] Blayne Giraldo PA-C Unavailable [phone] Tonio Castillo MD Unavailable Encounter Details Date Type Department Care Team (Late st Contact Info) Description 05/20/2017 [facility] [address] [facility] , [address] [place] [address] Tonio Castillo MD [address] [place] [address] Dyspnea on exertion (Primary Dx) Social History Tobacco Use Types Packs/Day Years Used Date Smoking Tobacco: Never Smokeless Tobacco: Never Alcohol Use Standard Drinks/Week Comments Yes 0 (1 standard drink = 0.6 oz pur e alcohol) 1 glass every couple months Comments No Sex and Gender Information Value Date Recorded Sex Assigned at Not on file Legal Sex Female 4:11 AM EMPLOYEE RELATIONS CONSULTANT Gender Identity Not on file Sexual Orientation Not on file documented as of this encounter Plan of Treatment Not on file documented as of this encounter Results * Hemoglobin (05/20/2017 1:40 PM CDT) Hemoglobin 11.8 11.7 - 15.7 g/dL 05/20/2017 2:27 PM CDT [facility] Blood specimen (specimen) 05/20/2017 1:40 PM CDT 05/20/2017 1:44 PM CDT us Tonio Castillo MD LAB - BLOOD ORDERABLES Final Res ult [facility] [address] [address], [facility] [phone] documented in this encounter Visit Diagnoses Diagnosis Dyspnea on exertion- Primary Other dyspnea and respiratory abnormality documented in this encounter Additional Health Concerns Infection Onset Date Last Indicated Resolved Time COVID-19 12/17/2020 12/17/2020 01/07/2021 11:4 0 PM CDT documented as of this encounter Care Teams Cork Pressing Machine Operator Relationship Specialty Start Date End Date Tonio Castillo MD [address] [place] [address] PCP - General Family Practice 10/12/16 Tonio Castillo MD [address] [place] [address] PCP - Assigned PCP 09/20/16 10/18/18 Tonio Castillo MD [address] [place] [address] Assigned PCP 09/20/16 07/31/22 [place] [address] [place] [address] Assigned Neuroscience Provider 06/07/20 12/13/21 Marcelo Espinal MD [facility] [address] [place] [address] Assigned Musculoskeletal Provider 06/07/20 02/01/21 Blayne Giraldo PA-C [address] [place] [place] [address] [place] [address] Assigned Surgical Provider 10/30/20 Blayne Giraldo PA-C [address] [place] [address] Assigned Musculoskeletal Provider 02/02/21 11/01/21 [place] [address] [place] [address] Assigned PCP 10/10/22 03/05/23 documented as of this encounter
--- OUTSIDE RECORDS SUMMARY | 2025-02-14 00:21 | XMS_ITS | Clinical Summary ---
Author Organization [facility] Address [address] [place] [address] Care Team Providers Care Capsule Filling Machine Operator Name Role Phone Elsewhere, Pcp Primary Care Provider Unavailabl e Source Comments Patient records contain information from all sites at [facility]. For routine questions regarding patient records, call [phone] during business hours, M-F 8:00 AM - 5:00 PM Central Time. Record requests for emergency care only can be directed to [phone] at any time.[facility] Allergies No known active allergies [...] Orders Only Department of Orthopedic Surgery in [place], [place] [address] [place] [phone] Winter Wasserman P.A.-C., P.A., M.S. Pain Hip Left (Primary Dx); Trochanteric Bursitis Left Hip 01/25/2025 10:45 AM CDT Comprehensive Visit Department of Orthopedic Surgery in [place], [place] [address] [place] [phone] Winter Wasserman P.A.-C., P.Esteban, M.S. Pain Hip Left (Primary Dx); Trochanteric Bursitis Left Hip Discharge Disposition: Home or Self Care 01/25/2025 10:20 AM CDT - 01/25/2025 11:59 PM CDT Hospital Encounter Department of Radiology, [facility], in [address] [phone] Winter Wasserman P.A.-C., PGricel, M.S. Pain Hip Left Discharge Disposition: Home or Self Care 12/22/2024 Clinical Communication Department of Cardiac Rehabilitation in [address] [phone] Rosey Gastelum R.N. Cardiac Rehab (Dropping CR) 12/18/2024 1:54 PM CDT - 12/18/2024 11:59 PM CDT Hospital Encounter Department of Cardiac Rehabilitation in [address] [phone] Fady Denney M.D. Percutaneous Transarterial Coronary Angioplasty Status Post Discharge Disposition: Home or Self Care 12/13/2024 1:55 PM CDT - 12/13/2024 11:59 PM CDT Hospital Encounter Department of Cardiac Rehabilitation in [address] [phone] Fady Denney M.D. Percutaneous Transarterial Coronary Angioplasty Status Post Discharge Disposition: Home or Self Care 2024 1:56 PM CDT - 2024 11:59 PM CDT Hospital Encounter Department of Cardiac Rehabilitation in [address] [phone] Fady Denney M.D. Percutaneous Transarterial Coronary Angioplasty Status Post Discharge Disposition: Home or Self Care 12/08/2024 1:49 PM CDT - 12/08/2024 11:59 PM CDT Hospital Encounter Department of Cardiac Rehabilitation in [address] [phone] Fady Denney M.D. Percutaneous Transarterial Coronary Angioplasty Status Post Discharge Disposition: Home or Self Care 12/04/2024 1:52 PM CDT - 12/04/2024 11:59 PM CDT Hospital Encounter Department of Cardiac Rehabilitation in [address] [address] Fady Denney M.D. Percutaneous Transarterial Coronary Angioplasty Status Post Discharge Disposition: Home or Self Care 12/01/2024 Plan of Care Documentation Department of Cardiac Rehabilitation in [address] [phone] 11/29/2024 1:20 PM CDT - 11/29/2024 11:59 PM CDT Hospital Encounter Department of Cardiac Rehabilitation in [address] [address] Fady Denney M.D. Percutaneous Transarterial Coronary Angioplasty Status Post Discharge Disposition: Home or Self Care 11/27/2024 1:51 PM CDT - 11/27/2024 11:59 PM CDT Hospital Encounter Department of Cardiac Rehabilitation in [address] [phone] Fady Denney M.D. Percutaneous Transarterial Coronary Angioplasty Status Post Discharge Disposition: Home or Self Care 11/24/2024 1:50 PM CDT - 11/24/2024 11:59 PM CDT Hospital Encounter Department of Cardiac Rehabilitation in [address] [phone] Fady Denney M.D. Percutaneous Transarterial Coronary Angioplasty Status Post Discharge Disposition: Home or Self Care 11/22/2024 8:55 AM CDT - 11/22/2024 11:59 PM CDT Hospital Encounter Department of Cardiac Rehabilitation in [address] [address] Fady Denney M.D. Percutaneous Transarterial Coronary Angioplasty Status Post Discharge Disposition: Home or Self Care 11/20/2024 8:50 AM CDT - 11/20/2024 11:59 PM CDT Hospital Encounter Department of Cardiac Rehabilitation in [address] [phone] Fayd Denney M.D. Percutaneous Transarterial Coronary Angioplasty Status Post Discharge Disposition: Home or Self Care 11/17/2024 1:49 PM CDT - 11/17/2024 11:59 PM CDT Hospital Encounter Department of Cardiac Rehabilitation in [address] [phone] Fady Denney M.D. Percutaneous Transarterial Coronary Angioplasty Status Post Discharge Disposition: Home or Self Care 11/15/2024 1:39 PM CDT - 11/15/2024 11:59 PM CDT Hospital Encounter Department of Cardiac Rehabilitation in [address] [phone] Fady Denney M.D. Percutaneous Transarterial Coronary Angioplasty Status Post Discharge Disposition: Home or Self Care from Last 3 Months Social History Tobacco Use Types Packs/Day Years Used Date Smoking Tobacco: Never Depression Answer Date Recor ded PHQ-9 Total Score (max 27) 8 11/08 Comments No Sex and Gender Information Value Date Recorded Sex Assigned at Not on file Legal Sex Female 12:58 PM RELAY WORKER Gender Identity Not on file Sexual Orientation [...] 5:00 PM CDT Appointment Department of Radiology, [facility], in [place], [place] [address] [place] [address] Winter Wasserman P.A.-C., P.A., M.S. [address] [place] [phone] Discharge Disposition: Home or Self Care 02/21/2025 10:15 AM CDT Comprehensive Visit Department of Physical Medicine and Rehabilitation in [place], [place] [address] [place] [phone] Winter Wasserman P.A.-C., P.A., M.S. [address] [place] [phone] Armida Rangel P.TLucila [address] [place] [phone] Health Maintenance Due Date Last Done Comments [...] this topic Medical Devices Implanted Type Area Electrical Accessories I Assembler Device Identifier Shelf Expiration Date Model / [...] 3 Months Insurance [employer] MEDICARE Care Teams Capsule Filling Machine Operator Relationship Specialty Start Date End Date Elsewhere, Pcp PCP - General Family Medicine 12/21/20
--- OUTSIDE RECORDS SUMMARY | 2025-02-14 00:21 | XMS_ITS | Encounter Summary ---
Author Organization [facility] Address [address] [address] Care Team Providers Care Well Driller Helper Name Role Phone Clinician, Not Found MD Primary Care Provider Un available Encounter Details Date Type Department Care Team (Late st Contact Info) Description 12/29/2024 Results [facility] [address] [place] [address]. [place] [address] Grover Singh Social History Tobacco Use Types [...] Info) Description 04/05/2025 11:20 AM CDT Appoint[address] [place] Scan [address] [place] [address] Darin Madrid MD [address] [place] [address] 04/05/2025 11:40 AM CDT [address] [place] Scan [address] [place] [address] Darin Madrid MD [facility] [place] [address] 04/05/2025 1:00 PM CDT Appointment [facility] [address] V[facility] Surgery [address] [place] [address] Darin Madrid MD [address] [place] [address] documented as of this encounter Visit Diagnoses Not on filedocumented in this encounter Care Teams Well Driller Helper Relationship Specialty Start Date End Date Clinician, Not Found, [place] [address] PCP - General 10/13/24 documented as of this encounter
--- OUTSIDE RECORDS SUMMARY | 2025-02-14 00:21 | XMS_ITS | Clinical Summary ---
Author Organization [facility] Address [facility] [place] [address] Care Team Providers Care Business Consultant Name Role Phone Melani Woods MD Primary [...] mg chewable tabletIndicatio ns:Coronary artery disease involving [place] coronary artery of [place] heart without angina pectoris Take 1 Tablet (81 mg) by mouth or nasogastric tube once daily. 90 Tablet 3 07/07/2024 6:53 PM TOURS CAPTAIN 07/08/20 24 Active clopidogreL (PLAVIX) 75 mg tabletIndicatio ns:Coronary artery disease involving [place] coronary artery of [place] heart without angina pectoris Take 1 Tablet (75 mg) by mouth once daily in the morning. 90 Tablet 3 07/07/2024 6:53 PM TOURS CAPTAIN 07/08/20 24 Active coenzyme q10 100 mg capIndications: Statin intolerance Take 1 Capsule (100 mg) by mouth once daily. 07/07/20 24 Active ezetimibe (ZETIA) 10 mg tabletIndicatio ns:Dyslipidemia Take 1 Tablet (10 mg) by mouth once daily. 90 Tablet 1 07/07/2024 6:53 PM TOURS CAPTAIN 07/08/20 24 Active nitroglycerin (NITROSTAT) 0.4 mg sublingual tabletIndicatio ns:Coronary artery disease involving [place] coronary artery of [place] heart without angina pectoris Place 1 Tablet (0.4 mg) under the tongue every 5 minutes if needed for Chest pain 1st choice (Hold if SBP less than 90 mmHg). Up to 3 tablets in 15 minutes. 25 Tablet 3 07/07/2024 6:53 PM TOURS CAPTAIN 07/07/20 24 Active rosuvastatin (CRESTOR) 5 mg tabletIndicatio ns:Coronary artery disease involving [place] coronary artery of [place] heart without angina pectoris,Dyslip idemia Take 1 Tablet (5 mg) by mouth at bedtime. 90 Tablet 3 07/07/2024 6:53 PM TOURS CAPTAIN 07/07/20 24 Active furosemide 20 mg tabletIndicatio [...] ubidecarenone Recent encounter dx: 07/14/24: Appointment - [facility] 04/23/13: Support OP Encounter - [facility] in [place] 02/20/13: Appointment - [facility] [place] 02/14/13: Appointment - [facility] [place] Recent notes: 10/02/24: Progress Notes - Interventional Cardiology Consult Note by Franko Malone MD ... [+] ? PE (pulmonary embolism) 08/07/24: Progress Notes by NELL Hancock ... [+] ? History of pulmonary embolism 06/19/2014 ... [+] ? PE (pulmonary embolism) 02/14/2013 07/18/24: Progress Notes by Juan J Bauer DO (from [facility]) ... [+] Other History: Severe bilateral internal [...] 0 10/15/2024 Coronary artery disease invo lving [place] coronary artery of [place] heart without angina pectoris 07/04/2024 Left main [...] Description 02/13/2025 2:00 PM CDT Office Visit [facility] at [address] [phone] Jonathan Clark MD Procedure (Left L4-5 TFESI) 02/13/2025 Travel 02/08/2025 Telephone [facility] [address] [place] [address] Melani Woods MD Medication Management (order for Dexamethasone) 01/31/2025 2:40 PM CDT Office Visit [facility] [address] [place] [address] Melani Woods MD Hip Pain/problem (Left hip pain - started 01/14/25/Hip replacement in 2012/Knee replacement in 2019. ) 01/31/2025 Travel 12/20/2024 10:00 AM CDT Office Visit [facility] Specialty [place] [address] [place] [address] [address] [place] [address] Rebeka Hatfield PA Follow Up (1 month followup / labs prior w/PMD. PT states feeling not bad. no cardiac symptoms today. nothing to note.) 12/20/2024 Travel 12/01/2024 10:15 AM CDT Office Visit [facility] [address] [place] [address] Melani Woods MD Post-op Pain/problem (unable to function - not able to walk or do daily activities/SOB - Mostly with activity, sometimes at rest. /) 12/01/2024 Travel 11/16/2024 11:00 AM CDT Office Visit [facility] [address] [facility] [address] [place] [address] Lor Holt, TANI Follow Up ([facility] [...] on file Legal Sex Female 6:49 AM TOURS CAPTAIN Gender Identity Not on file Sexual Orientation [...] 36.4 C (97.5 F) 10/19/2024 11:48 AM TOURS CAPTAIN Respiratory Rate 14 10/19/2024 11:4 8 AM TOURS CAPTAIN Oxygen Saturation 97% 01/31/2025 2:34 PM CDT Inhaled Oxygen Concentration - - Weight 64.8 kg (142 lb 14.4 oz) 12/20/2024 9:55 AM CDT Height 157.5 cm (5' 2) 12/20/2024 9:55 AM CDT Body Mass Index 26.14 12/20/2024 9:55 AM CDT Plan of Treatment Upcoming Encounters Date Type Department Care Team (Late st Contact Info) Description 03/22/2025 11:15 AM CDT Office Visit [facility] [address] [place] [address] [place] [address] [place] [address] Health Maintenance Due Date Last [...] * PRO-BNP (12/01/2024 10:53 AM CDT) Pathologist [facility] NT PROBNP 283 <450 pg/mL [facility] Ramos Blood BLOOD SPECIMEN / Unknown 12/01/2024 10:53 AM CDT 12/01/2024 10:55 AM CDT us Lor Debora Holt VERIFYING SPECIALIST SEND OUTS Final Resu lt [facility] [employer] [facility] [address] [place] [address], [facility] [address] [place] [address] * (ABNORMAL) BASIC METABOLIC PANEL (12/01/2024 10:53 AM CDT) Pathologist [facility] GLUCOSE 103(H) 65 - 99 mg/dL [facility] Comment: Fasting reference interval For someone without known diabetes, a glucose value between 100 and 125 mg/dL is consistent with prediabetes and should be confirmed with a follow-up test. UREA NITROGEN (BUN) 8 7 - 25 mg/dL [facility] CREATININE 0.68 0.60 - 0.95 mg/dL [facility] EGFR 86 > OR = 60 mL/min/1. 73m2 [facility] BUN/CREATININE RATIO SEE NOTE: 6 [...] Richard CALCIUM 9.3 8.6 - 10.4 mg/dL [facility] Ramos Blood BLOOD SPECIMEN / Unknown 12/01/2024 10:53 AM CDT 12/01/2024 10:55 AM CDT Lor Holt VERIFYING SPECIALIST CHEMISTRY Final Resu lt [facility] [address] [place] [address], [facility] [address] [place] [address] from Last 3 Months Insurance MEDICARE PART A HB ONLY [employer] PB ONLY MEDICARE PART B HB ONLY [...] Code Status Discussion: Reviewed Preferences Care Teams Business Consultant Relationship Specialty Start Date End Date [place] [address] PCP - General Family Practice 06/12/24
--- OUTSIDE RECORDS SUMMARY | 2025-02-14 00:21 | XMS_ITS | Encounter Summary ---
Author Organization [facility] Address [address] [place] [address] Care Team Providers Care Bar Steward Name Role Phone Elsewhere, Pcp Primary Care Provider Unavailabl e Reason for Referral * MRI/CAT/PET Scan (Routine) - Authorized Specialty Diagnoses / Procedures Referred By Contac t Referred To Contact Radiology Diagnoses Pain Hip Left Trochanteric Bursitis Left Hip Procedures MR Hip Left without IV Contrast Winter Wasserman P.A.-C., P.A., M.S. [address] [place] [phone] Phone: tel: fax: [facility] Region Referral ID Status Reason Start Date Expiration Date V isits Requested Visits Authorized [id number] Authorized 01/29/2025 05/01/2026 1 1 Encounter Details Date Type Department Care Team (Late st Contact Info) Description 01/29/2025 Orders Only Department of Orthopedic Surgery in [place], [place] [address] [place] [phone] Winter Wasserman P.A.-C., P.A., M.S. [address] [place] [phone] Pain Hip Left (Primary Dx); Trochanteric Bursitis Left Hip Social History Tobacco Use Types Packs/Day Years Used Date Smoking Tobacco: Never Depression Answer Date Recor ded PHQ-9 Total Score (max 27) 8 03/26 /2025 Comments No Sex and Gender Information Value Date Recorded Sex Assigned at Not on file Legal Sex Female 12:58 PM WINDOW MAKER Gender Identity Not on file Sexual Orientation Not on file documented as of this encounter Plan of Treatment Upcoming Encounters Date Type Department Care Team (Latest Contact Info) Description 02/20/2025 5:00 PM CDT Appointment Department of Radiology, [facility], in [place], [place] [address] [place] [address] Winter Wasserman P.A.-C., P.A., M.S. [address] [place] [phone] Discharge Disposition: Home or Self Care 02/21/2025 10:15 AM CDT Comprehensive Visit Department of Physical Medicine and Rehabilitation in [place], [place] [address] [place] [phone] Winter Wasserman P.A.-C., P.A., M.S. [address] [place] [phone] Armida Rangel P.TLucila [address] [place] [phone] Scheduled Orders Name Type Priority Associated Diagnoses [...] documented as of this encounter Care Teams Bar Steward Relationship Specialty Start Date End Date Elsewhere, Pcp PCP - General Family Medicine 12/21/20 documented as of this encounter
--- OUTSIDE RECORDS SUMMARY | 2025-02-14 00:21 | XMS_ITS | Encounter Summary ---
Author Organization [facility] Address [address] [place] [address]. [place] [address] Care Team Providers Care Machine Stitcher Name Role Phone Tonio Castillo MD Primary Care Provider Tonio Castillo MD Unavailable Tonio Castillo MD Unavailable Alexander Zepeda MD Unavailable Marcelo Espinal MD Unavailable [phone] Blayne Giraldo PA-C Unavailable [phone] Blayne Giraldo PA-C Unavailable [phone] Tonio Castillo MD Unavailable Reason for Visit * Reason Onset Date Comments Erroneous encounter-disregard 06/16/2018 Encounter Details Date Type Department Care Team (Late st Contact Info) Description 06/16/[address] [phone] Tonio Castillo MD [address] [place] [address] Erroneous encounter-disregard Social History Tobacco Use Types Packs/Day Years Used Date Smoking Tobacco: Never Smokeless Tobacco: Never Alcohol Use Standard Drinks/Week Comments Yes 0 (1 standard drink = 0.6 oz pur e alcohol) 1 glass every couple months Comments No Sex and Gender Information Value Date Recorded Sex Assigned at Not on file Legal Sex Female 4:11 AM YARDER ENGINEER Gender Identity Not on file Sexual [...] documented as of this encounter Care Teams Machine Stitcher Relationship Specialty Start Date End Date Tonio Castillo MD [address] [place] [id number] PCP - General Family Practice 10/12/16 Tonio Castillo MD [address] [place] [id number] PCP - Assigned PCP 09/20/16 10/18/18 Tonio Castillo MD [address] [place] [address] [id number] Assigned PCP 09/20/16 07/31/22 [place] [address] [facility] G[place]MOLEJO [id number] Assigned Neuroscience Provider 06/07/20 12/13/21 Marcelo Espinal MD [facility] [address] [id number] Assigned Musculoskeletal Provider 06/07/20 02/01/21 Blayne Giraldo PA-C [address] [facility] [address] [place] [address] Assigned Surgical Provider 10/30/20 Blayne Giraldo PA-C [address] [place] [address] Assigned Musculoskeletal Provider 02/02/21 11/01/21 [place] [address] [place] [address] Assigned PCP 10/10/22 03/05/23 documented as of this encounter
--- OUTSIDE RECORDS SUMMARY | 2025-02-14 00:22 | XMS_ITS | Clinical Summary ---
Author Organization [facility] Address [address] [place] [address] Care Team Providers Care Party Host Name Role Phone Clinician, Not Found MD Primary Care Provider Un available Source Comments You are receiving this document as you are listed as the primary care provider,follow-up provider, or the patient has been referred to you for consultation.This is in compliance with the Medicare and[facility] Cent[facility] EHR Incentive Program,which states Providers who transition their patient to another setting of careor provider of care or refers their patient to another provider of care shouldprovide summary care record for each transition of care or referral. [employer] Adaptive Allergies No known active allergies Medications acetaminophen [...] [facility] [address] [facility] [place] [address] Grover Singh 12/28/2024 11:30 AM CDT Office Visit [facility] [address] Vascular Surgery [address] [place] [address] Darin Madrid MD Bilateral carotid artery stenosis (Primary Dx) 12/28/2024 11:00 AM CDT Ancillary Procedure [facility] [address] V[facility] Lab [address] [place] [address] Darin Madrid MD Bilateral carotid artery stenosis [...] 36.7 C (98.1 F) 10/14/2024 11:39 AM EQUIPMENT MANAGER Respiratory Rate 16 10/14/2024 11:3 9 AM EQUIPMENT MANAGER Oxygen Saturation 98% 10/14/2024 11: 39 AM EQUIPMENT MANAGER Inhaled Oxygen Concentration - - Weight 67.5 kg (148 lb 14.4 oz) 10/14/2024 7:00 AM EQUIPMENT MANAGER Height 154.9 cm (5' 1) 10/13/2024 6:12 AM EQUIPMENT MANAGER Body Mass Index 28.13 10/13/2024 6:12 AM EQUIPMENT MANAGER Plan of Treatment Upcoming Encounters Date Type Department Care Team (Late st Contact Info) Description 04/05/2025 11:20 AM CDT Appointment [place] [facility] [address] [place] [address] Darin Madrid MD [address] [place] [phone] 04/05/2025 11:40 AM CDT [place]oint[place] [facility] [address] [place] [address] Darin Madrid MD [address] [place] [phone] 04/05/2025 1:00 PM CDT Appointment [facility] [place] [address] [facility] Surgery [address] [place] [phone] Darin Madrid MD [address] [place] [address] [phone] Health Maintenance Due Date Last Done Comments [...] this topic Medical Devices Implanted Type Area Insurance And Benefits Clerk Device Identifier Shelf Expiration Date Model / Serial / Lot Transcarotid Stent System Implanted:Qty: 1 on 10/13/2024 by Darin Madrid MD at [facility] Right: [facility] 06/15/2026 [id number] / / [id number] Procedures Procedure Name Priority Date/Time Associated Diagnosis Comments US/VL CAROTID BILAT Routine 12/28/2024 1 1:15 AM CDT Bilateral carotid artery stenosis DXA BONE DENSITY SPINE/HIP INC VERT FX ASSESS Routine 06/21/2024 11:23 AM EQUIPMENT MANAGER Post-menopausal History of hip fracture from Last [...] Inc Vert FX Assess (06/21/2024 11:23 AM EQUIPMENT MANAGER) [facility] DXA Lumbar Spine Bone Mineral Density 1.142 [...] Radiographic Rose ging Narrative 06/21/2024 11:42 AM EQUIPMENT MANAGER Table formatting from the original result was [...] trabecular bone, and is derived from the vgnir-vw-flygu changes of bone density embedded in the [...] Health Maintenance Insurance MEDICARE MANAGED CARE [employer] MEDICARE MANAGED CARE [employer] Advance Directives * Full Code (Latest Code Status on File) Date Activated Date Inactivated Comments 10/13/2024 12:24 PM 10/14/2024 5:08 PM Care Teams Party Host Relationship Specialty Start Date End Date Clinician, Not Found, [place] [address] PCP - General 10/13/24
== END 2025-02-13 12:54 | disposition home or self-care (01) ==
LOC: INJ CL 12:57
PROVIDERS: PCP Student in an Organized Health Care Education/Training Program; Visit Provider Family Medicine
DX: M54.16 Radiculopathy, lumbar region (principal); M51.369 Other intervertebral disc degeneration, lumbar region without mention of lumbar back pain or lower extremity pain
CPT/HCPCS: 64483; J1100; Q9966

== ENCOUNTER 2025-05-01 12:24 | Outpatient (CLI) | payer MEDICARE, OTHER, SELFPAY | END 2025-05-01 12:25 | disposition home or self-care (01) | LOC: INJ CL 12:24 | PROVIDERS: PCP Student in an Organized Health Care Education/Training Program; Visit Provider Family Medicine | DX: M54.16 Radiculopathy, lumbar region (principal); M51.26 Other intervertebral disc displacement, lumbar region; M51.369 Other intervertebral disc degeneration, lumbar region without mention of lumbar back pain or lower extremity pain | CPT/HCPCS: 64483; J1100; Q9966 ==